=== PATIENT | female | born 1970 | race Caucasian/White ===

== ENCOUNTER 2017-08-19 21:20 | Emergency (ER) | payer MEDICAID ==
[~2017-08-19 21:20] MED LIST: ALBU6.7H INH
[2017-08-19 21:24] VITALS: BP 211/114; PULSE 74; RESP 15; TEMP 98.7; O2SAT 99
== END 2017-08-19 23:11 | disposition left against medical advice (07) ==
LOC: NED 21:20
DX: R68.89 Other general symptoms and signs (principal)
CPT/HCPCS: 99281

== ENCOUNTER 2017-09-12 18:09 | Emergency (ER) | payer MEDICAID ==
[~2017-09-12] VITALS: Ht 170.2 cm; Wt 66.0 kg
[2017-09-12 18:17] VITALS: BP 180/87; PULSE 92; RESP 16; TEMP 99; O2SAT 99
[2017-09-12] MEDS ORDERED: CLON.5 PO (18:32)
[2017-09-12] MEDS ORDERED: PERC10TA27 PO (18:32)
[2017-09-12] MEDS ORDERED: CYCL5TAB PO (18:32)
[2017-09-12] MEDS ORDERED: ATEN50TA PO (18:32)
[2017-09-12] MEDS ORDERED: FENT50DI T-DERMAL (18:32)
[2017-09-12] MEDS ORDERED: SODIUM CHLOR 0.9% 1000 ML INJ 1,000 ML IV SCH (19:40)
[2017-09-12 19:45] VITALS: BP 152/89; PULSE 76; RESP 16; O2SAT 98
[2017-09-12] MEDS ORDERED: SODIUM CHLORIDE 0.9% FLUSH 10 ML FLUSH IV FLUSH PRN (19:45)
[2017-09-12] MEDS ORDERED: ONDANSETRON HCL 4 MG/2 ML VIAL IVP ONE (19:45)
[2017-09-12 19:57] VITALS: O2SAT 96
[2017-09-12 20:02] VITALS: TEMP 98.1
[2017-09-12 20:03] LABS: AUTOMATED NEUTROPHIL # 7.6 TH/MM3 (1.8-7.7); BASOPHIL % 0.4 % (0.0-2.0); EOSINOPHIL # 0.2 TH/MM3 (0-0.4); EOSINOPHIL % 1.4 % (0.0-4.0); HEMATOCRIT 45.3 % (35.0-46.0); HEMO FLAGS DIFF FINAL; LYMPH % 30.3 % (9.0-44.0); LYMPHOCYTE # 3.7 TH/MM3 (1.0-4.8); MEAN CORPUSCULAR HEMOGLOBIN 31.1 PG (27.0-34.0); MEAN CORPUSCULAR HGB CONC 33.8 % (32.0-36.0); MONO % 6.9 % (0.0-8.0); PLATELET COUNT 330 TH/MM3 (150-450); RED BLOOD COUNT 4.93 MIL/MM3 (4.00-5.30); RED CELL DISTRIBUTION WIDTH 13.7 % (11.6-17.2); WHITE BLOOD COUNT 12.4 TH/MM3 (4.0-11.0)
[2017-09-12 20:05] LABS: BLOOD, URINE NEG (NEG); GLUCOSE,URINE NEG (NEG); KETONE, URINE TRACE mg/dL (NEG); NITRITE,URINE NEG (NEG); PH, URINE 5.5 (5.0-8.5)
[2017-09-12 20:11] LABS: CHLORIDE 101 MEQ/L (98-107); POTASSIUM 3.9 MEQ/L (3.5-5.1); SODIUM (NA) 137 MEQ/L (136-145)
[2017-09-12 20:15] LABS: ANION GAP 8 MEQ/L (5-15); BICARBONATE 27.9 MEQ/L (21.0-32.0); BLOOD UREA NITROGEN 17 MG/DL (7-18)
[2017-09-12 20:17] VITALS: BP 173/89; PULSE 74; RESP 16; O2SAT 99
[2017-09-12 20:17] LABS: MUCUS URINE MOD /lpf (OCC); URINE COLOR AMBER (YELLW/STRAW)
[2017-09-12 20:18] LABS: ALT (GPT) 24 U/L (10-53); AST (GOT) 9 U/L (15-37); GLOMERULAR FILTRATION RATE 65 ML/MIN (>89)
[2017-09-12 20:18] LABS: SQUAMOUS EPITHELIAL CELL URINE 0-5 /hpf (0-5)
[2017-09-12 20:19] LABS: TOTAL BILIRUBIN ADULT 0.4 MG/DL (0.2-1.0)
[2017-09-12 20:19] LABS: BACTERIA, URINE OCC /hpf; COMMENT (UR) CULT NOT INDICATED; CULTURE IF INDICATED CULT NOT INDICATED; RBC, URINE 0-3 /hpf (0-3); WBC, URINE 0-2 /hpf (0-5)
[2017-09-12 20:21] LABS: ALKALINE PHOSPHATASE 54 U/L (45-117)
[2017-09-12] MEDS ORDERED: IOHEXOL 350 MG/ML 10 ML VIAL (for RAD DIAG) IVCONTRAST ONE (21:24)
--- NOTE | 2017-09-12 21:31 | RADRPT ---
EXAM DATE/TIME: 09/12/2017 20:58 [place] COMPARISON: No previous studies available for comparison. INDICATIONS : Right flank and back pain. IV CONTRAST: 100 cc Omnipaque 350 (iohexol) IV ORAL CONTRAST: No oral contrast ingested. RADIATION DOSE: 8.62 CTDIvol (mGy) MEDICAL HISTORY : Hypertension. Diverticulosis. SURGICAL HISTORY : Hysterectomy. laminectomy ENCOUNTER: Initial ACUITY: 2 days PAIN SCALE: 8/10 LOCATION: Right flank back TECHNIQUE: Volumetric scanning of the abdomen and pelvis was performed. Using automated exposure control and ad justment of the mA and/or kV according to patient size, radiation dose was kept as low as reasonably achievable to obtain optimal diagnostic quality images. DICOM format image data is available electro nically for review and comparison. FINDINGS: CT Abdomen: The liver, spleen, pancreas, kidneys, adrenals are unremarkable. There is no evidence for any appreciable pathological adenopathy, free fluid, or bowel obstruction. CT pelvis: There is no evidence for mass, abscess formation, or any significant adenopathy within the pelvis. There are scattered diverticuli mainly in the sigmoid colon without definite signs of divert iculitis. There is an approximate 2.7 cm cyst in the right ovary and the uterus is absent surgically. CONCLUSION: Essentially unremarkable study except for right ovarian cyst and scattered colonic. Lj Gay MD on September 12, 2017 at 21:25 Board Certified Radiologist. This report was verified electronically.
[2017-09-12] MEDS ORDERED: ZOFR4TAB3 SL (21:46)
--- NOTE | 2017-09-12 21:47 | PD ---
HPI Chief Complaint: GI Complaint Time Seen by Provider: 19:40 Travel History International Travel<30 days: No Contact w/Intl Traveler<30days: No Traveled to known affect area: No History of Present Illness HPI 47-year-old female presents to the emergency department for complaint of myalgias arthralgias Everone and lower abdominal pain since yesterday morning. Patient has had nausea without vomiting. Patient has had a few loose stools but denies mucoid or bloody diarrhea. Patient states that she has had some back pain as well. Patient states she has chronic back pain for which she is prescribed a pain patch and Percocet every 6 hours. Patient states because she takes Percocet every 6 hours with acetaminophen she thinks she may have missed a fever but has noted her temperature to be 99.6F at home. Patient states that she attempted to see her physician today and called the office but no one answered or call her back therefore follow decided to come to the emergency room. Patient states she just does not feel well overall. Patient states that she was on antibiotic that she completed approximately one week ago. Patient had been on azithromycin for upper respiratory infection. Patient denies any respiratory illness symptoms at this time no headache no sinus pressure drainage no sore throat no earache no cough no congestion no shortness of breath no wheezing or chest pain. Patient states she has been taking her blood pressure medication as prescribed. Patient is concerned because she has had previous diverticulitis and urinary tract infections. Patient denies any dysuria frequency urgency or hematuria. Patient is status post hysterectomy and has history of small ovarian cysts. Patient has had no vaginal discharge or vaginal bleeding. Patient rates her pain 8/10 in intensity. Patient is unable to identify exacerbating or alleviating factors. Patient does not report anorexia. [facility] Past Medical History Narrative Medical Asthma anxiety diverticulosis spina bifida occulta chronic pain syndrome chronic back pain hysterectomy ovarian cyst hypertension migraines; tobacco use; : Nursing notes reviewed Asthma: Yes Anxiety: Yes Diminished Hearing: No Hypertension: Yes Neurologic: Yes (SPINA BIFIDA) Immunizations Current: No Migraines: Yes ?: Not Past Surgical History Hysterectomy: Yes Social History Alcohol Use: No Tobacco Use: Yes (1/2PPD) Substance Use: No Allergies-Medications (Allergen,Severity, Reaction): Coded Allergies: aspirin (Unverified Allergy, Severe, Anaphylaxis, 09/12/17) codeine (Unverified Allergy, Severe, Anaphylaxis, 09/12/17) ibuprofen (Unverified Allergy, Severe, Anaphylaxis, 09/12/17) Reported Meds & Prescriptions Reported Meds & Active Scripts Active Zofran Odt (Ondansetron Odt) 4 Mg Tab 4 Mg SL Q6HR PRN Reported Flexeril (Cyclobenzaprine HCl) 5 Mg Tab 5 Mg PO TID Percocet (Oxycodone-Acetaminophen) 10-325 mg Tab 1 Tab PO Q6H PRN Fentanyl Patch 72 HR (Fentanyl) 50 Mcg/Hr Patch 50 Mcg T-DERMAL Q72H Remove old patch when new one placed. Klonopin (Clonazepam) 0.5 Mg Tab 0.5 Mg PO DAILY Atenolol 50 Mg Tab 50 Mg PO HS Review of Systems Except as stated in HPI: all other systems reviewed are Neg General / Constitutional: Positive: Fever, No: Chills (subjective) HENT: No: Headaches, Lightheadedness, Sore Throat, Rhinorrhea, Congestion Cardiovascular: No: Chest Pain or Discomfort Respiratory: No: Cough, Shortness of Breath Gastrointestinal: Positive: Nausea, Abdominal Pain, No: Diarrhea, Hematemesis, Hematochezia, Loss of Appetite Genitourinary: Positive: Flank Pain, No: Urgency, Frequency, Dysuria, Hematuria , Pelvic Pain, Discharge, Vaginal Bleeding Musculoskeletal: Positive: Myalgias, Arthralgias, Pain (chronic low back pain) Skin: No Rash Neurologic: No: Weakness Endocrine: No: Heat Intolerance Hematologic/Lymphatic: No: Easy Bruising Physical Exam Narrative GENERAL: Well-developed well-nourished female in no acute distress no respiratory distress SKIN: Warm and dry. HEAD: Normocephalic. EYES: No scleral icterus. No injection or drainage. NECK: Supple, trachea midline. No JVD or lymphadenopathy. CARDIOVASCULAR: Regular rate and rhythm without murmurs, gallops, or rubs. RESPIRATORY: Breath sounds equal bilaterally. No accessory muscle use. GASTROINTESTINAL: Abdomen soft, mild bilateral lower quadrant tenderness without guarding or rebound, nondistended. MUSCULOSKELETAL: No cyanosis, or edema. BACK: Nontender without obvious deformity. No CVA tenderness. Data Data Last Documented VS Vital Signs Date Time Temp Pulse Resp B/P (MAP) Pulse Ox O2 Delivery O2 Flow Rate FiO2 09/12/17 20:17 74 16 173/89 (117) 99 Room Air 09/12/17 20:02 98.1 Orders Orders Complete Blood Count With Diff (09/12/17 19:40) Comprehensive Metabolic Panel (09/12/17 19:40) Lipase (09/12/17 19:40) Lactic Acid (09/12/17 19:40) Urinalysis - C+S If Indicated (09/12/17 19:40) Ct Abd/Pel W Iv Contrast(Rout) (09/12/17 19:40) Iv Access Insert/Monitor (09/12/17 19:40) Ecg Monitoring (09/12/17 19:40) Oximetry (09/12/17 19:40) Ondansetron Inj (Zofran Inj) (09/12/17 19:45) Sodium Chlor 0.9% 1000 Ml Inj (Ns 1000 M (09/12/17 19:40) Sodium Chloride 0.9% Flush (Ns Flush) (09/12/17 19:45) Blood Culture (09/12/17 19:40) Iohexol 350 Inj (Omnipaque 350 Inj) (09/12/17 21:24) Ed Discharge Order (09/12/17 21:45) Labs Laboratory Tests Test 09/12/17 18:38 09/12/17 18:49 09/12/17 19:00 Urine Color NENA Urine Turbidity SLIGHT Urine pH 5.5 Urine Specific Eldred GREATER THAN 1.035 Urine Protein TRACE mg/dL Urine Glucose (UA) NEG mg/dL Urine Ketones TRACE mg/dL Urine Occult Blood NEG Urine Nitrite NEG Urine Bilirubin NEG Urine Leukocyte Esterase NEG Urine RBC 0-3 /hpf Urine WBC 0-2 /hpf Urine Squamous Epithelial Cells 0-5 /hpf Urine Amorphous Sediment MOD Urine Bacteria OCC /hpf Urine Mucus MOD /lpf Microscopic Urinalysis Comment CULT NOT INDICATED White Blood Count 12.4 TH/MM3 Red Blood Count 4.93 MIL/MM3 Hemoglobin 15.3 GM/DL Hematocrit 45.3 % Mean Corpuscular Volume 92.0 FL Mean Corpuscular Hemoglobin 31.1 PG Mean Corpuscular Hemoglobin Concent 33.8 % Red Cell Distribution Width 13.7 % Platelet Count 330 TH/MM3 Mean Platelet Volume 7.7 FL Neutrophils (%) (Auto) 61.0 % Lymphocytes (%) (Auto) 30.3 % Monocytes (%) (Auto) 6.9 % Eosinophils (%) (Auto) 1.4 % Basophils (%) (Auto) 0.4 % Neutrophils # (Auto) 7.6 TH/MM3 Lymphocytes # (Auto) 3.7 TH/MM3 Monocytes # (Auto) 0.9 TH/MM3 Eosinophils # (Auto) 0.2 TH/MM3 Basophils # (Auto) 0.0 TH/MM3 CBC Comment DIFF FINAL Differential Comment Blood Urea Nitrogen 17 MG/DL Creatinine 0.93 MG/DL Random Glucose 99 MG/DL Total Protein 8.0 GM/DL Albumin 3.8 GM/DL Calcium Level 9.2 MG/DL Alkaline Phosphatase 54 U/L Aspartate Amino Transf (AST/SGOT) 9 U/L Alanine Aminotransferase (ALT/SGPT) 24 U/L Total Bilirubin 0.4 MG/DL Sodium Level 137 MEQ/L Potassium Level 3.9 MEQ/L Chloride Level 101 MEQ/L Carbon Dioxide Level 27.9 MEQ/L Anion Gap 8 MEQ/L Estimat Glomerular Filtration Rate 65 ML/MIN Lipase 165 U/L Lactic Acid Level 1.0 mmol/L MDM Medical Decision Making Medical Screen Exam Complete: Yes Emergency Medical Condition: Yes Medical Record Reviewed: Yes Interpretation(s) Last Impressions Abdomen/Pelvis CT 09/12/171939 Signed Impressions: Service Date/Time: Tuesday, September 12, 2017 20:58 - CONCLUSION: Essentially unremarkable study except for right ovarian cyst and scattered colonic. Diverticuli. Nay Gay MD CBC & BMP Diagram 09/12/17 18:49 Total Protein 8.0, Albumin 3.8, Calcium Level 9.2, Alkaline Phosphatase 54, Aspartate Amino Transf (AST/SGOT) 9 L, Alanine Aminotransferase (ALT/SGPT) 24, Total Bilirubin 0.4 Vital Signs Date Time Temp Pulse Resp B/P (MAP) Pulse Ox O2 Delivery O2 Flow Rate FiO2 09/12/17 20:17 74 16 173/89 (117) 99 Room Air 09/12/17 20:02 98.1 09/12/17 19:57 96 09/12/17 19:45 76 16 152/89 (110) 98 Room Air 09/12/17 18:17 99.0 92 16 180/87 (118) 99 Differential Diagnosis Abdominal pain, diverticulitis, colitis, UTI, pyelonephritis, atypical appendicitis ruptured ovarian cyst: Also consider atypical biliary colic and less likely ovarian torsion Narrative Course Patient placed on cardiac cath technologist IV access obtained specimens collected and sent for resulting patient given bolus of normal saline 1 L as well as Zofran 4 mg IV Patient waiting on lab results and resting comfortably and CT abdomen and pelvis pending CBC is automated differential mild elevation of total white cell count 12,500 with normal range hemoglobin hematocrit platelet count and automated differential; the metabolic panel grossly within normal range and lactic acid is elevated at 1.0 Urinalysis produced and identified to have elevated specific 55 small ketones otherwise unremarkable EKG Patient taking oral hydration with Gatorade CT abdomen and pelvis resulted and identified to have no acute intra-abdominal or pelvic process a 2.7 cm ovarian cyst is noted on the right ovary. Patient informed of imaging results and states that she has had a cyst on the right ovary for some time and sounds unchanged. Patient taking oral hydration well and feels much improved after IV fluid bolus and states that she has urinated twice and that her urine is now appearing to look clear instead of concentrated. Patient feels well is desirous of being discharged home in stable for outpatient management at this time with encouragement to follow up with her primary care provider continue to monitor temperature for fever and given prescription for Zofran 4 mg. Patient's questions have been answered to her satisfaction Diagnosis Primary Impression: Abdominal pain Qualified Codes: R10.30 - Lower abdominal pain, unspecified Additional Impression: Dehydration Referrals: Primary Care Physician call for appointment Patient Instructions: General Instructions Additional Instructions: Increase fluid hydration Follow clear liquid diet for next 12-24 hours advance as tolerated to bland/ Loli diet then regular diet Follow-up with your primary care provider Monitor temperature every 4 hours with thermometer take acetaminophen as needed for fever 100.4F or greater Return to the emergency department for increased pain fever vomiting or any concerns No work times one day Med/Other Pt SpecificInfo: Prescription(s) given Scripts Ondansetron Odt (Zofran Odt) 4 Mg Tab 4 MG SL Q6HR Y for Nausea/Vomiting, #10 TAB 0 Refills Prov: Padmini Weiss MD 09/12/17 Disposition: 01 DISCHARGE HOME Condition: Stable Padmini Weiss MD Sep 12, 2017 21:47
== END 2017-09-12 22:00 | disposition home or self-care (01) ==
LOC: PHED 18:09
DX: R10.30 Lower abdominal pain, unspecified (principal); J45.909 Unspecified asthma, uncomplicated; F41.9 Anxiety disorder, unspecified; I10 Essential (primary) hypertension; F17.200 Nicotine dependence, unspecified, uncomplicated; Z79.899 Other long term (current) drug therapy; E86.0 Dehydration
CPT/HCPCS: 74177; 80053; 81001; 83605; 83690; 85025; 87040; 96361; 96374; 99285; J2405; J7030; Q9967

== ENCOUNTER → 2017-12-05 | Outpatient (CLI) | payer MEDICAID ==
[~2017-12-05] MED LIST changes: -ALBU6.7H INH; +ATEN50TA PO; +CLON.5 PO; +CYCL5TAB PO; +FENT50DI T-DERMAL; +PERC10TA27 PO; +ZOFR4TAB3 SL
--- NOTE | 2017-12-05 16:11 | EKG ---
Date Performed: 12/05/2017 Time Performed: 13:11:47 PTAGE: 47 years EKG: Sinus rhythm NORMAL ECG PREVIOUS TRACING : 03/05/2012 16.34 Compared to prior tracing no significant change DOCTOR: Ben Lindquist Interpretating Date/Time 12/05/2017 16:09:44
== END ==
LOC: HCAV 12:50
PROVIDERS: ATTEND Psychiatry & Neurology Child & Adolescent Psychiatry
DX: F43.12 Post-traumatic stress disorder, chronic (principal); F90.0 Attention-deficit hyperactivity disorder, predominantly inattentive type; F39 Unspecified mood [affective] disorder
CPT/HCPCS: 93005

== ENCOUNTER 2018-07-12 01:00 | Inpatient (IN) ==
[2018-07-12] MEDS ORDERED: Sod Chloride 0.9% Inj 1,000 ML IV.CONT SCH (01:30)
[2018-07-12 02:09] LABS: Baso # (Auto) 0.1 th/mm3 (0.0-0.2); Baso % (Auto) 0.7 % (0.0-2.0); Eos # (Auto) 0.2 th/mm3 (0.0-0.4); Eos % (Auto) 2.5 % (0.0-4.0); Hematocrit 38.3 % (35.0-46.0); Hemoglobin 13.2 gm/dL (11.6-15.3); Lymph # (Auto) 4.1 th/mm3 (1.0-4.8); Lymph % (Auto) 46.5 % (9.0-44.0); Mean Corpuscular HGB Conc 34.6 % (32.0-36.0); Mean Corpuscular Hemoglobin 32.2 pg (27.0-34.0); Mean Platelet Volume 8.1 fL (7.0-11.0); Mono # (Auto) 0.7 th/mm3 (0.0-0.9); Mono % (Auto) 7.4 % (0.0-8.0); Neut # (Auto) 3.8 th/mm3 (1.8-7.7); Neut % (Auto) 42.9 % (16.0-70.0); Platelet Count 241 th/mm3 (150-450); Red Blood Count 4.12 mil/mm3 (4.00-5.30); Red Cell Distribution Width 12.7 % (11.6-17.2); White Blood Count 8.9 th/mm3 (4.0-11.0)
--- NOTE | 2018-07-12 02:11 | XR ---
EXAM DATE: 07/12/2018 1:49 AM EDT AGE/SEX: 48 years / Female INDICATIONS: Short of breath. CLINICAL DATA: This is the patient's initial encounter. Patient reports that signs and symptoms have been present for 1 day and indicates a pain score of 2/10. MEDICAL/SURGICAL HISTORY: None. None. COMPARISON: No prior exams available for comparison. FINDINGS: A single AP view of the chest demonstrates the lungs to be symmetrically aerated without evidence of mass, infiltrate or effusion. The cardiomediastinal contours are unremarkable. Osseous structures a re intact. CONCLUSION: No acute cardiopulmonary process. Electronically signed by: Corey Herman MD 07/12/2018 2:10 AM EDT
[2018-07-12 02:21] LABS: Activated Partial Thrombo Time 27.1 sec (24.3-30.1); Prothrombin Time 10.3 sec (9.8-11.6)
[2018-07-12] MEDS ORDERED: Sod Chloride 0.9% Inj 1,000 ML IV.SIG ONE (02:22)
[2018-07-12 02:24] LABS: Anion Gap 7 meq/L (5-15); Blood Urea Nitrogen 16 mg/dL (7-18); Calcium 8.5 mg/dL (8.5-10.1); Carbon Dioxide 23.2 meq/L (21.0-32.0); Chloride 114 meq/L (98-107); Glomerular Filtration Rate 71 mL/min (>89); Glucose,Random 89 mg/dL (74-106); Potassium 3.3 meq/L (3.5-5.1); Sodium 144 meq/L (136-145)
--- NOTE | 2018-07-12 02:24 | ED ---
HPI General Chief complaint: Neuro Symptoms/Deficit Stated complaint: Seizure/Evac Time Seen by Provider: 07/12/18 01:08 Source: patient Mode of arrival: ambulatory Limitations: no limitations History of Present Illness HPI narrative: Ivan is a 48-year-old female presenting with multiple complaints. She stated that she has had TIAs in the past. She also states that she was seen by her neurologist yesterday and told her that she may be having nocturnal seizures with TIAs and she was scheduled to have an outpatient CT angios of the head and neck. She stated that she had an MRI that showed that she had several previous strokes. Today she was sleeping and woke up very confused and having tingling and numbness on her left upper extremity and difficulty speaking. She also stated that she was having palpitations and difficulty breathing. Her symptoms have resolved. Onset (ago): unknown Location: left and upper extremity Radiation: non-radiation Associated symptoms: confusion and shortness of breath Related Data Home Medications Medication Instructions Recorded Confirmed clopidogrel [Plavix] 75 mg PO EVERY OTHER DAY 07/12/18 07/12/18 fenofibrate nanocrystallized 48 mg PO DAILY 07/12/18 07/12/18 fentanyl 1 patch TRANSDERMAL Q72H 07/12/18 07/12/18 ondansetron 4 mg PO BID PRN 07/12/18 07/12/18 oxycodone-acetaminophen [Percocet] 1 tab PO Q6H PRN 07/12/18 07/12/18 sumatriptan succinate 50 mg PO Q2-4H PRN 07/12/18 07/12/18 topiramate 200 mg PO HS 07/12/18 07/12/18 verapamil 120 mg PO HS 07/12/18 07/12/18 Allergies Allergy/AdvReac Type Severity Reaction Status Date / Time aspirin Allergy Severe Anaphylaxis Verified 07/12/18 15:00 codeine Allergy Severe Anaphylaxis Verified 07/12/18 15:00 ibuprofen Allergy Severe Anaphylaxis Verified 07/12/18 15:00 Review of Systems ROS: all other systems reviewed are negative Constitutional Reports fatigue, Denies fever(s), Denies headache(s), Reports malaise and Denies night sweats Eyes Reports system reviewed and no additional complaints, except as docu, Denies diplopia, Denies loss of vision and Denies photophobia ENT Reports system reviewed and no additional complaints, except as docu Cardiovascular Reports chest pain, Reports irregular heart rhythm and Reports palpitations Gastrointestinal Reports as per [facility] Genitourinary Reports system reviewed and no additional complaints, except as [facility] Musculoskeletal Reports system reviewed and no additional complaints, except as [facility] Neurologic Denies abnormal movements, Reports abnormal speech, Reports confusion, Denies vertigo, Denies syncope, Denies headache(s), Denies focal weakness, Denies convulsions, Denies paresthesias, Denies tremor(s) and Denies weakness [facility] Medical History Medical History Diabetes (Acute) Hx of hysterectomy (Acute) Hypertension (Acute) TIA (transient ischemic attack) (Acute) Surgical History Surgical History Hx of laminectomy (Acute) Family History Family History Father CVA (cerebral vascular accident) Mother CVA (cerebral vascular accident) Social History Social History Substance History: No History of Abuse Second Hand Smoke Exposure: Yes Smoking Status: Current every day smoker Tobacco Type: Cigarettes How Often Do You Have a Drink Containing Alcohol: Monthly or less Recent Travel in [facility] within the Last 8 Weeks: No Recent Out of Country Travel within the Last 8 Weeks: No Immunization History Tetanus Immunization: Unsure Hx Influenza Vaccine This Season: No Exam Narrative Exam Narrative: GENERAL: Alert and oriented in no distress SKIN: Focused skin assessment warm/dry. HEAD: Atraumatic. Normocephalic. EYES: Pupils equal and round. No scleral icterus. No injection or drainage. ENT: No nasal bleeding or discharge. Mucous membranes pink and moist. NECK: Trachea midline. No JVD. CARDIOVASCULAR: Regular rate and rhythm. No murmur appreciated. RESPIRATORY: No accessory muscle use. Clear to auscultation. Breath sounds equal bilaterally. GASTROINTESTINAL: Abdomen soft, non-tender, nondistended. Hepatic and splenic margins not palpable. MUSCULOSKELETAL: No obvious deformities. No clubbing. No cyanosis. No edema. NEUROLOGICAL: Awake and alert. No obvious cranial nerve deficits. Motor grossly within normal limits. Normal speech. No focal neurologic deficits. Bilateral patellar reflex absent. Bilateral brachio/radial reflex 1+, no sensory deficit. PSYCHIATRIC: Appropriate mood and affect; insight and judgment normal. Psych Mental Status: mental status grossly normal Speech and Movement: speech and movement normal and restless Affect: animated Attitude: cooperative Thought Process: flight of ideas Judgment: judgment good Course Reevaluation(s) Reevaluation #1: Patient called in distress in the room stating that she is feeling exactly the same way that she was feeling at home. It appears on monitor that she is having a sinus tachycardia. We did vasovagal maneuvers with immediate drop of heart rate from the 140s to the 120s we will give a liter of fluid and reassess. Time: 02:23 Initial Documented Vital Signs Temperature 98.1 F 07/12/18 01:05 Pulse Rate 84 07/12/18 01:05 Respiratory Rate 18 07/12/18 01:05 Blood Pressure 161/88 H 07/12/18 01:05 Pulse Oximetry 100 07/12/18 01:05 Last Documented Vital Signs Temperature 98.2 F 07/14/18 03:49 Pulse Rate 64 07/14/18 05:10 Respiratory Rate 16 07/14/18 03:49 Blood Pressure 108/75 07/14/18 03:49 Pulse Oximetry 99 07/14/18 03:49 Medical Decision Making [facility] Narrative Medical Screen Exam Complete: Yes Emergency Medical Condition: Yes Lab Data Result diagrams: 07/13/18 05:53 07/13/18 05:53 Lab Results 07/12/18 07/12/18 07/12/18 Range/Units 01:50 01:50 01:50 WBC 8.9 (4.0-11.0) th/mm3 RBC 4.12 (4.00-5.30) mil/mm3 Hgb 13.2 (11.6-15.3) gm/dL Hct 38.3 (35.0-46.0) % MCV 93.0 (80.0-100.0) fL MCH 32.2 (27.0-34.0) pg MCHC 34.6 (32.0-36.0) % RDW 12.7 (11.6-17.2) % Plt Count 241 (150-450) th/mm3 MPV 8.1 (7.0-11.0) fL Neut % (Auto) 42.9 (16.0-70.0) % Lymph % (Auto) 46.5 H (9.0-44.0) % Sandoval % (Auto) 7.4 (0.0-8.0) % Eos % (Auto) 2.5 (0.0-4.0) % Baso % (Auto) 0.7 (0.0-2.0) % Neut # (Auto) 3.8 (1.8-7.7) th/mm3 Lymph # (Auto) 4.1 (1.0-4.8) th/mm3 [place]oval # (Auto) 0.7 (0.0-0.9) th/mm3 Eos # (Auto) 0.2 (0.0-0.4) th/mm3 Baso # (Auto) 0.1 (0.0-0.2) th/mm3 WBC Differential . Differential Comment Auto diff final ESR (0-20) mm/hr PT 10.3 (9.8-11.6) sec INR 1.0 Ratio APTT 27.1 (24.3-30.1) sec Sodium 144 (136-145) meq/L Potassium 3.3 L (3.5-5.1) meq/L Chloride 114 H (98-107) meq/L Carbon Dioxide 23.2 (21.0-32.0) meq/L Anion Gap 7 (5-15) meq/L BUN 16 (7-18) mg/dL Creatinine 0.86 (0.50-1.00) mg/dL Estimated GFR 71 L (>89) mL/min POC Glucose (68-110) mg/dl Random Glucose 89 (74-106) mg/dL Hemoglobin A1c (4.3-6.0) % Calcium 8.5 (8.5-10.1) mg/dL Total Creatine Kinase 60 (26-192) U/L Troponin I Less than 0.02 L (0.02-0.05) ng/mL Triglycerides (42-150) mg/dL Cholesterol (120-200) mg/dL LDL Cholesterol, Calc (0-99) mg/dL HDL Cholesterol (40.0-60.0) mg/dL Cholesterol/HDL Ratio Ratio Vitamin B12 (193-986) pg/mL TSH (0.358-3.740) uIU/mL Urine Color (Yellw/Straw) Urine Clarity (Clear) Urine pH (5.0-8.5) Ur Specific Axton (1.002-1.035) Urine Protein (Neg-Trace) mg/dL Urine Glucose (UA) (Negative) mg/dL Urine Ketones (Negative) mg/dL Urine Occult Blood (Negative) Urine Nitrate (Negative) Urine Bilirubin (Negative) Urine Urobilinogen (Less than 2) mg/dL Ur Leukocyte Esterase (Negative) Ur Squamous Epith Cells (0-5) /hpf Amorphous Sediment (None) /hpf Urine Bacteria (None) /hpf Micro UA Comment Urine Culture Comments GREGORY Screen (Neg) RPR (Nonreactive) Blood Type Blood Type Recheck Antibody Screen 07/12/18 07/12/18 07/12/18 Range/Units 01:50 02:00 18:45 WBC (4.0-11.0) th/mm3 RBC (4.00-5.30) mil/mm3 Hgb (11.6-15.3) gm/dL Hct (35.0-46.0) % MCV (80.0-100.0) fL MCH (27.0-34.0) pg MCHC (32.0-36.0) % RDW (11.6-17.2) % Plt Count (150-450) th/mm3 MPV (7.0-11.0) fL Neut % (Auto) (16.0-70.0) % Lymph % (Auto) (9.0-44.0) % Sandoval % (Auto) (0.0-8.0) % Eos % (Auto) (0.0-4.0) % Baso % (Auto) (0.0-2.0) % Neut # (Auto) (1.8-7.7) th/mm3 Lymph # (Auto) (1.0-4.8) th/mm3 Sandoval # (Auto) (0.0-0.9) th/mm3 Eos # (Auto) (0.0-0.4) th/mm3 Baso # (Auto) (0.0-0.2) th/mm3 WBC Differential Differential Comment ESR (0-20) mm/hr PT (9.8-11.6) sec INR Ratio APTT (24.3-30.1) sec Sodium (136-145) meq/L Potassium (3.5-5.1) meq/L Chloride (98-107) meq/L Carbon Dioxide (21.0-32.0) meq/L Anion Gap (5-15) meq/L BUN (7-18) mg/dL Creatinine (0.50-1.00) mg/dL Estimated GFR (>89) mL/min POC Glucose 86 (68-110) mg/dl Random Glucose (74-106) mg/dL Hemoglobin A1c (4.3-6.0) % Calcium (8.5-10.1) mg/dL Total Creatine Kinase (26-192) U/L Troponin I (0.02-0.05) ng/mL Triglycerides (42-150) mg/dL Cholesterol (120-200) mg/dL LDL Cholesterol, Calc (0-99) mg/dL HDL Cholesterol (40.0-60.0) mg/dL Cholesterol/HDL Ratio Ratio Vitamin B12 (193-986) pg/mL TSH (0.358-3.740) uIU/mL Urine Color Yellow (Yellw/Straw) Urine Clarity Cloudy H (Clear) Urine pH 8.0 (5.0-8.5) Ur Specific [place] 1.015 (1.002-1.035) Urine Protein Negative (Neg-Trace) mg/dL Urine Glucose (UA) Negative (Negative) mg/dL Urine Ketones Negative (Negative) mg/dL Urine Occult Blood Negative (Negative) Urine Nitrate Negative (Negative) Urine Bilirubin Negative (Negative) Urine Urobilinogen 4 or greater (Less than 2) mg/dL Ur Leukocyte Esterase Negative (Negative) Ur Squamous Epith Cells 1 (0-5) /hpf Amorphous Sediment Rare H (None) /hpf Urine Bacteria Rare H (None) /hpf Micro UA Comment Culture not ind Urine Culture Comments Culture not ind GREGORY Screen (Neg) RPR (Nonreactive) Blood Type A Positive Blood Type Recheck Required Antibody Screen Negative 07/12/18 07/12/18 07/12/18 Range/Units 20:00 20:50 20:50 WBC (4.0-11.0) th/mm3 RBC (4.00-5.30) mil/mm3 Hgb (11.6-15.3) gm/dL Hct (35.0-46.0) % MCV (80.0-100.0) fL MCH (27.0-34.0) pg MCHC (32.0-36.0) % RDW (11.6-17.2) % Plt Count (150-450) th/mm3 MPV (7.0-11.0) fL Neut % (Auto) (16.0-70.0) % Lymph % (Auto) (9.0-44.0) % Sandoval % (Auto) (0.0-8.0) % Eos % (Auto) (0.0-4.0) % Baso % (Auto) (0.0-2.0) % Neut # (Auto) (1.8-7.7) th/mm3 Lymph # (Auto) (1.0-4.8) th/mm3 Sandoval # (Auto) (0.0-0.9) th/mm3 Eos # (Auto) (0.0-0.4) th/mm3 Baso # (Auto) (0.0-0.2) th/mm3 WBC Differential Differential Comment ESR 15 (0-20) mm/hr PT (9.8-11.6) sec INR Ratio APTT (24.3-30.1) sec Sodium (136-145) meq/L Potassium (3.5-5.1) meq/L Chloride (98-107) meq/L Carbon Dioxide (21.0-32.0) meq/L Anion Gap (5-15) meq/L BUN (7-18) mg/dL Creatinine (0.50-1.00) mg/dL Estimated GFR (>89) mL/min POC Glucose (68-110) mg/dl Random Glucose (74-106) mg/dL Hemoglobin A1c (4.3-6.0) % Calcium (8.5-10.1) mg/dL Total Creatine Kinase (26-192) U/L Troponin I (0.02-0.05) ng/mL Triglycerides 197 H (42-150) mg/dL Cholesterol 205 H (120-200) mg/dL LDL Cholesterol, Calc 129 H (0-99) mg/dL HDL Cholesterol 37.1 L (40.0-60.0) mg/dL Cholesterol/HDL Ratio 5.52 Ratio Vitamin B12 280 (193-986) pg/mL TSH 0.347 L (0.358-3.740) uIU/mL Urine Color (Yellw/Straw) Urine Clarity (Clear) Urine pH (5.0-8.5) Ur Specific [place] (1.002-1.035) Urine Protein (Neg-Trace) mg/dL Urine Glucose (UA) (Negative) mg/dL Urine Ketones (Negative) mg/dL Urine Occult Blood (Negative) Urine Nitrate (Negative) Urine Bilirubin (Negative) Urine Urobilinogen (Less than 2) mg/dL Ur Leukocyte Esterase (Negative) Ur Squamous Epith Cells (0-5) /hpf Amorphous Sediment (None) /hpf Urine Bacteria (None) /hpf Micro UA Comment Urine Culture Comments GREGORY Screen Neg (Neg) RPR Nonreactive (Nonreactive) Blood Type Blood Type Recheck Antibody Screen 07/12/18 07/13/18 07/13/18 Range/Units 21:33 05:53 05:53 WBC 8.2 (4.0-11.0) th/mm3 RBC 4.37 (4.00-5.30) mil/mm3 Hgb 13.9 (11.6-15.3) gm/dL Hct 40.4 (35.0-46.0) % MCV 92.4 (80.0-100.0) fL MCH 31.8 (27.0-34.0) pg MCHC 34.4 (32.0-36.0) % RDW 12.5 (11.6-17.2) % Plt Count 256 (150-450) th/mm3 MPV 8.0 (7.0-11.0) fL Neut % (Auto) 51.1 (16.0-70.0) % Lymph % (Auto) 40.2 (9.0-44.0) % Sandoval % (Auto) 6.4 (0.0-8.0) % Eos % (Auto) 1.6 (0.0-4.0) % Baso % (Auto) 0.7 (0.0-2.0) % Neut # (Auto) 4.2 (1.8-7.7) th/mm3 Lymph # (Auto) 3.3 (1.0-4.8) th/mm3 Sandoval # (Auto) 0.5 (0.0-0.9) th/mm3 Eos # (Auto) 0.1 (0.0-0.4) th/mm3 Baso # (Auto) 0.1 (0.0-0.2) th/mm3 WBC Differential . Differential Comment Auto diff final ESR (0-20) mm/hr PT (9.8-11.6) sec INR Ratio APTT (24.3-30.1) sec Sodium 141 (136-145) meq/L Potassium 3.5 (3.5-5.1) meq/L Chloride 114 H (98-107) meq/L Carbon Dioxide 19.6 L (21.0-32.0) meq/L Anion Gap 7 (5-15) meq/L BUN 10 (7-18) mg/dL Creatinine 0.70 (0.50-1.00) mg/dL Estimated GFR Greater than 89 (>89) mL/min POC Glucose 118 H (68-110) mg/dl Random Glucose 81 (74-106) mg/dL Hemoglobin A1c (4.3-6.0) % Calcium 8.7 (8.5-10.1) mg/dL Total Creatine Kinase (26-192) U/L Troponin I (0.02-0.05) ng/mL Triglycerides 207 H (42-150) mg/dL Cholesterol 204 H (120-200) mg/dL LDL Cholesterol, Calc 129 H (0-99) mg/dL HDL Cholesterol 33.7 L (40.0-60.0) mg/dL Cholesterol/HDL Ratio 6.05 Ratio Vitamin B12 (193-986) pg/mL TSH (0.358-3.740) uIU/mL Urine Color (Yellw/Straw) Urine Clarity (Clear) Urine pH (5.0-8.5) Ur Specific Axton (1.002-1.035) Urine Protein (Neg-Trace) mg/dL Urine Glucose (UA) (Negative) mg/dL Urine Ketones (Negative) mg/dL Urine Occult Blood (Negative) Urine Nitrate (Negative) Urine Bilirubin (Negative) Urine Urobilinogen (Less than 2) mg/dL Ur Leukocyte Esterase (Negative) Ur Squamous Epith Cells (0-5) /hpf Amorphous Sediment (None) /hpf Urine Bacteria (None) /hpf Micro UA Comment Urine Culture Comments GREGORY Screen (Neg) RPR (Nonreactive) Blood Type Blood Type Recheck Antibody Screen 07/13/18 07/13/18 07/13/18 Range/Units 05:53 12:29 17:37 WBC (4.0-11.0) th/mm3 RBC (4.00-5.30) mil/mm3 Hgb (11.6-15.3) gm/dL Hct (35.0-46.0) % MCV (80.0-100.0) fL MCH (27.0-34.0) pg MCHC (32.0-36.0) % RDW (11.6-17.2) % Plt Count (150-450) th/mm3 MPV (7.0-11.0) fL Neut % (Auto) (16.0-70.0) % Lymph % (Auto) (9.0-44.0) % Sandoval % (Auto) (0.0-8.0) % Eos % (Auto) (0.0-4.0) % Baso % (Auto) (0.0-2.0) % Neut # (Auto) (1.8-7.7) th/mm3 Lymph # (Auto) (1.0-4.8) th/mm3 Sandoval # (Auto) (0.0-0.9) th/mm3 Eos # (Auto) (0.0-0.4) th/mm3 Baso # (Auto) (0.0-0.2) th/mm3 WBC Differential Differential Comment ESR (0-20) mm/hr PT (9.8-11.6) sec INR Ratio APTT (24.3-30.1) sec Sodium (136-145) meq/L Potassium (3.5-5.1) meq/L Chloride (98-107) meq/L Carbon Dioxide (21.0-32.0) meq/L Anion Gap (5-15) meq/L BUN (7-18) mg/dL Creatinine (0.50-1.00) mg/dL Estimated GFR (>89) mL/min POC Glucose 104 129 H (68-110) mg/dl Random Glucose (74-106) mg/dL Hemoglobin A1c 5.0 (4.3-6.0) % Calcium (8.5-10.1) mg/dL Total Creatine Kinase (26-192) U/L Troponin I (0.02-0.05) ng/mL Triglycerides (42-150) mg/dL Cholesterol (120-200) mg/dL LDL Cholesterol, Calc (0-99) mg/dL HDL Cholesterol (40.0-60.0) mg/dL Cholesterol/HDL Ratio Ratio Vitamin B12 (193-986) pg/mL TSH (0.358-3.740) uIU/mL Urine Color (Yellw/Straw) Urine Clarity (Clear) Urine pH (5.0-8.5) Ur Specific A[place] (1.002-1.035) Urine Protein (Neg-Trace) mg/dL Urine Glucose (UA) (Negative) mg/dL Urine Ketones (Negative) mg/dL Urine Occult Blood (Negative) Urine Nitrate (Negative) Urine Bilirubin (Negative) Urine Urobilinogen (Less than 2) mg/dL Ur Leukocyte Esterase (Negative) Ur Squamous Epith Cells (0-5) /hpf Amorphous Sediment (None) /hpf Urine Bacteria (None) /hpf Micro UA Comment Urine Culture Comments GREGORY Screen (Neg) RPR (Nonreactive) Blood Type Blood Type Recheck Antibody Screen Imaging Data Radiologist's impression: Chest X-Ray 07/12/18 01:19 CONCLUSION: No acute cardiopulmonary process. Head CT 07/12/18 01:19 CONCLUSION: Negative noncontrast head CT. . Head CTA 07/12/18 01:19 CONCLUSION: Negative CTA. Neck CTA 07/12/18 02:55 CONCLUSION: 1. Right carotid bulb ulcer. 2. Calcified plaque at the left carotid bulb without significant stenosis. Head MRI 07/12/18 12:36 CONCLUSION: Examination quality is mildly degraded by motion artifact. Otherwise, no acute intracranial abnormality is identified. There are no findings to indicate recent ischemia. Head MRA 07/12/18 12:36 CONCLUSION: 1. Negative MRA [place] ([place]) non contrast. ECG Data Attestation: I personally reviewed and interpreted this ECG as follows: Prior ECG tracings: available for review Interpretation: EKG obtained in 1:22 AM revealed ventricular rate of 79 bpm normal sinus rhythm nonspecific ST-T wave abnormalities left atrial hypertrophy no STEMI QTc within normal limits. Interval within normal limits no signs of acute ischemia The patient had an episode of sinus tachycardia with heart rate up in the 140s 150s she was given a liter of fluids and IV Ativan and by the time of the EKG was repeated she was back on sinus rhythm with a heart rate of 86 bpm and no EKG changes when compared to the previous one from earlier today Discharge Plan Discharge Disposition Patient Disposition: 30 Still Patient Discharge Order Discharge Orders: Vascular Surgery Clear for Discharge (Routine); Ordered 07/13/18 Ordered By: Alejandro Velasco Discharge Details Diagnosis: TIA (transient ischemic attack), Carotid ulcer Physicians Team ED Provider: Santos Gomez Primary Care Provider: UNKNOWN, Attending Provider: Jeison Rodriguez Other Providers: Alejandro Velasco ; Lenard Brown ; Katharina Gamez ; Ben Lindquist Discharge Interventions Interventions: ED Discharge Assessment Last Done: 07/12/18 15:41 Vital Signs Last Done: 07/12/18 15:30 Status ED Status: Left Department Discharge Information Discharge Date/Time: 07/12/18 15:43
[2018-07-12 02:25] LABS: Amorphous Sediment,Urine Rare /hpf; Bacteria,Urine Rare /hpf; Bilirubin,Urine Negative (Negative); Clarity,Urine Cloudy (Clear); Color,Urine Yellow (Yellw/Straw); Glucose,Urine (UA) Negative (Negative); Leukocyte Esterase,Urine Negative (Negative); Nitrite,Urine Negative (Negative); Specific Gravity,Urine 1.015 (1.002-1.035); Squamous Epithelial Cell,Urine 1 /hpf (0-5); Urobilinogen,Urine 4 or Greater mg/dL (Less than 2)
[2018-07-12 02:33] LABS: Creatine Kinase 60 U/L (26-192)
--- NOTE | 2018-07-12 03:27 | CT ---
EXAM DATE: 07/12/2018 3:20 AM EDT AGE/SEX: 48 years / Female INDICATIONS: Left arm numbness, difficulty speaking. CLINICAL DATA: This is the patient's initial encounter. Patient reports that signs and symptoms have been present for 1 day and indicates a pain score of 0/10. MEDICAL/SURGICAL HISTORY: Diabetes. Hypertension. Transient ischemic attack. Hysterectomy. RADIATION DOSE: 56.35 CTDI (mGy) COMPARISON: No prior exams available for comparison. TECHNIQUE: CT of the head without contrast. Using automated exposure control and adjustment of the mA and/or kV according to patient size, radiation dose was kept as low as reasonably achievable to ob tain optimal diagnostic quality images. DICOM format image data is available electronically for revi ew and comparison. FINDINGS: Cerebrum: The ventricles are normal for age. No evidence of midline shift, mass lesion, hemorrhage or acute infarction. No extraaxial fluid collections are seen. Posterior Fossa: The cerebellum and brainstem are intact. The 4th ventricle is midline. The cerebe llopontine angle is unremarkable. Extracranial: The visualized portion of the orbits is intact. Skull: The calvaria is intact. No evidence of skull fracture. CONCLUSION: Negative noncontrast head CT. . Electronically signed by: Corey Herman MD 07/12/2018 3:26 AM EDT
--- NOTE | 2018-07-12 04:01 | CT ---
EXAM DATE: 07/12/2018 3:32 AM EDT AGE/SEX: 48 years / Female INDICATIONS: Left arm numbness, difficulty speaking. CLINICAL DATA: This is the patient's initial encounter. Patient reports that signs and symptoms have been present for 1 day and indicates a pain score of 0/10. MEDICAL/SURGICAL HISTORY: Diabetes. Hypertension. Transient ischemic attack. Hysterectomy. RADIATION DOSE: 10.00 CTDI (mGy) COMPARISON: No prior exams available for comparison. TECHNIQUE: Volumetric scanning was performed using a multi-row detector CT scanner during bolus infu inez of 75 ml Omnipaque 350 (iohexol) nonionic water-soluble contrast as a single exam dose. The d agusto was post processed with a variety of visualization algorithms including full volume maximum inten sity projection, multi-planar sliding thin slab reformation, curved planar reformation, and surface r endering techniques. Using automated exposure control and adjustment of the mA and/or kV according t o patient size, radiation dose was kept as low as reasonably achievable to obtain optimal diagnostic quality images. DICOM format image data is available electronically for review and comparison. FINDINGS: There is excellent visualization of the major intracranial arteries out to the second-order branch ve ssels. There is no evidence for aneurysm, vessel truncation or stenosis, and no evidence for vascula r malformation. Much of the flow to the right posterior cerebral artery arises from the right interna l carotid artery. Much of the flow to the left posterior cerebral artery arises from the basilar noemy ry. This is a normal variant. CONCLUSION: Negative CTA. Electronically signed by: Corey Herman MD 07/12/2018 4:00 AM EDT
--- NOTE | 2018-07-12 04:09 | CT ---
EXAM DATE: 07/12/2018 3:40 AM EDT AGE/SEX: 48 years / Female INDICATIONS: Left arm numbness, difficulty speaking. CLINICAL DATA: This is the patient's initial encounter. Patient reports that signs and symptoms have been present for 1 day and indicates a pain score of 0/10. MEDICAL/SURGICAL HISTORY: Diabetes. Hypertension. Transient ischemic attack. Hysterectomy. RADIATION DOSE: 10.00 CTDI (mGy) COMPARISON: [facility], CTA HEAD W CONTRAST W 3D, 07/12/2018. . TECHNIQUE: Volumetric scanning was performed using a multirow detector CT scanner during bolus infus ion of 75 ml Omnipaque 350 (iohexol) nonionic water-soluble contrast as a single exam dose. The da ta was postprocessed with a variety of visualization algorithms including full-volume maximum intensi ty projection, multiplanar sliding thin-slab reformation, curved-planar reformation, and surface-rend ering techniques. Using automated exposure control and adjustment of the mA and/or kV according to p atient size, radiation dose was kept as low as reasonably achievable to obtain optimal diagnostic lillie lity images. DICOM format image data is available electronically for review and comparison. FINDINGS: Aortic Arch: There is a three-vessel origin of the great vessels from the aorta. No evidence of ost ial narrowing Right Carotid: There is mild plaque at the right carotid bulb. There is an ulcer at the posterior me dial carotid bulb region. This could be a source for emboli. The ulcer measures approximately 8 mm in length, 3 mm in transverse dimension and 3 mm in AP dimension. No thrombus is seen within it. The in ternal and external carotid carotid arteries are patent. Left Carotid: The common carotid artery is intact. There is a calcified plaque at the carotid bulb w ithout significant stenosis. The internal carotid artery lumen is smooth without stenosis. The exter nal carotid artery is intact. Vertebrals: The vertebral arteries have a symmetric diameter. No stenotic lesions are seen. Percent stenosis is calculated using the diameter of the stenotic region over the diameter of the nor mal distal internal carotid artery. CONCLUSION: 1. Right carotid bulb ulcer. 2. Calcified plaque at the left carotid bulb without significant stenosis. Electronically signed by: Corey Herman MD 07/12/2018 4:08 AM EDT
[2018-07-12] MEDS ORDERED: Acetaminophen 325 MG Tablet PO PRN (05:21)
[2018-07-12] MEDS ORDERED: Temazepam 15 MG Capsule PO PRN (05:21)
[2018-07-12] MEDS: Sod Chloride 0.9% Inj 1,000 ML IV.CONT SCH ×2 (05:52→17:08)
--- NOTE | 2018-07-12 10:48 | P.CONVS ---
History of Present Illness Service: vascular surgery Consult date: 07/12/18 Reason for Consult: R carotid ulcer Primary Care Provider: UNKNOWN Chief Complaint: confusion and L UE tingling History of Present Illness: 48 yo female with a history of what she terms "stroke like migraines" and a week 's history of waking up confused with L UE tingling. She also notes that she gets L UE tingling with her intermittent shortness of breath, which she temporally associates with episodic tachycardia. No other lateralizing symptoms. Has atherosclerotic risk factors of DM, HTN, HOL, and smoking. Review of Systems Constitutional: Reports headache(s), Denies fever(s) Eyes: Denies change in vision Cardiovascular: Reports fainting, Reports fast heart rate, Reports irregular heart rhythm, Reports shortness of breath Respiratory: Reports cough Neurologic: Reports confusion, Reports headache(s), Reports memory loss PMFSH - History History Provided By: Patient - Medical History Medical History: Medical History (Last Reviewed 07/12/18 @ 10:40 by Alejandro Velasco MD) Diabetes Hx of hysterectomy Hypertension TIA (transient ischemic attack) - Surgical History Surgical History: Surgical History (Last Reviewed 07/12/18 @ 10:40 by Alejandro Velasco MD) Hx of laminectomy - Tobacco History Second Hand Smoke Exposure: Yes Tobacco Use In Past 30 Days: Yes Smoking Status: Current every day smoker Tobacco Type: Cigarettes - Alcohol History How Often Do You Have a Drink Containing Alcohol: Monthly or less - Substance Use History Substance History: No History of Abuse - Travel History Recent Travel in the USA Within the Last 8 Weeks: No Recent Travel Out of the Country Within the Last 8 Weeks: No - Immunization History Tetanus Immunization: Unsure Hx Influenza Vaccine This Season: No Medications and Allergies Active Medications: Active Medications Acetaminophen (Tylenol) 650 mg PO Q4H PRN PRN Reason: Temp > 100.4 Sodium Chloride (Ns Inj) 1,000 mls @ 70 mls/hr IV.CONT .[id number] [facility] Stop: 07/12/18 15:47 Last Admin: 07/12/18 05:36 Dose: Not Given Sodium Chloride (Ns Inj) 1,000 mls @ 100 mls/hr IV.CONT .Q10H [facility] Last Admin: 07/12/18 05:52 Dose: 100 mls/hr Ondansetron HCl (Zofran Inj) 4 mg IV.PUSH Q6H PRN PRN Reason: NAUSEA OR VOMITING Sodium Chloride (Ns Flush) 2 ml IV.FLUSH PRN PRN PRN Reason: FLUSH AFTER USING IV ACCESS Temazepam (Restoril) 15 mg PO HS PRN PRN Reason: INSOMNIA Allergies Allergy/AdvReac Type Severity Reaction Status Date / Time aspirin Allergy Severe Anaphylaxis Unverified 09/12/17 18:17 codeine Allergy Severe Anaphylaxis Unverified 09/12/17 18:17 ibuprofen Allergy Severe Anaphylaxis Unverified 09/12/17 18:17 Physical Exam Vital Signs / I&O: Vital Signs 07/12/18 01:05 07/12/18 01:52 07/12/18 03:00 Temperature 98.1 F Pulse Rate 84 84 88 Respiratory Rate 18 18 Blood Pressure 161/88 H 123/62 Pulse Oximetry 100 100 99 07/12/18 06:07 07/12/18 07:30 Temperature Pulse Rate 76 77 Respiratory Rate 18 18 Blood Pressure 142/92 H 144/83 H Pulse Oximetry 99 98 Intake & Output 07/11/18 07/12/18 07/12/18 18:59 06:59 18:59 Weight 63.049 kg Neuro: alert, no distress; WATTS with 5/5 strength. HEENT: NC/AT; anicteric sclera Neck: no JVD Heart: reg rate, no M Lungs: clear B Vascular: palpable UE pulses Laboratory Results - last 24 hr 07/12/18 07/12/18 07/12/18 01:50 01:50 01:50 WBC 8.9 RBC 4.12 Hgb 13.2 Hct 38.3 MCV 93.0 MCH 32.2 MCHC 34.6 RDW 12.7 Plt Count 241 MPV 8.1 Neut % (Auto) 42.9 Lymph % (Auto) 46.5 H [place] % (Auto) 7.4 Eos % (Auto) 2.5 Baso % (Auto) 0.7 Neut # (Auto) 3.8 Lymph # (Auto) 4.1 [place] # (Auto) 0.7 Eos # (Auto) 0.2 Baso # (Auto) 0.1 WBC Differential . Differential Comment Auto diff final PT 10.3 INR 1.0 APTT 27.1 Sodium 144 Potassium 3.3 L Chloride 114 H Carbon Dioxide 23.2 Anion Gap 7 BUN 16 Creatinine 0.86 Estimated GFR 71 L Random Glucose 89 Calcium 8.5 Total Creatine Kinase 60 Troponin I Less than 0.02 L Urine Color Urine Clarity Urine pH Ur Specific [place] Urine Protein Urine Glucose (UA) Urine Ketones Urine Occult Blood Urine Nitrate Urine Bilirubin Urine Urobilinogen Ur Leukocyte Esterase Ur Squamous Epith Cells Amorphous Sediment Urine Bacteria Micro UA Comment Urine Culture Comments Blood Type Blood Type Recheck Antibody Screen 07/12/18 07/12/18 01:50 02:00 WBC RBC Hgb Hct MCV MCH MCHC RDW Plt Count MPV Neut % (Auto) Lymph % (Auto) [place] % (Auto) Eos % (Auto) Baso % (Auto) Neut # (Auto) Lymph # (Auto) [place] # (Auto) Eos # (Auto) Baso # (Auto) WBC Differential Differential Comment PT INR APTT Sodium Potassium Chloride Carbon Dioxide Anion Gap BUN Creatinine Estimated GFR Random Glucose Calcium Total Creatine Kinase Troponin I Urine Color Yellow Urine Clarity Cloudy H Urine pH 8.0 Ur Specific [place] 1.015 Urine Protein Negative Urine Glucose (UA) Negative Urine Ketones Negative Urine Occult Blood Negative Urine Nitrate Negative Urine Bilirubin Negative Urine Urobilinogen 4 or greater Ur Leukocyte Esterase Negative Ur Squamous Epith Cells 1 Amorphous Sediment Rare H Urine Bacteria Rare H Micro UA Comment Culture not ind Urine Culture Comments Culture not ind Blood Type A Positive Blood Type Recheck Required Antibody Screen Negative Impressions Chest X-Ray 07/12/18 01:19 CONCLUSION: No acute cardiopulmonary process. Head CT 07/12/18 01:19 CONCLUSION: Negative noncontrast head CT. . Head CTA 07/12/18 01:19 CONCLUSION: Negative CTA. Neck CTA 07/12/18 02:55 CONCLUSION: 1. Right carotid bulb ulcer. 2. Calcified plaque at the left carotid bulb without significant stenosis. Assessment and Plan - Assessment (1) Carotid ulcer Code(s): I65.29 - Occlusion and stenosis of unspecified carotid artery Status : Acute - Plan 48 yo female with neurological symptoms not clearly hemispheric and carotid- based. Does have a carotid ulcer on CTA that I reviewed. Needs aggressive medical management and maybe carotid intervention, which given the ulcer will likely be replacement. Would only do that if intracranial imaging shows R sided hemispheric ischemic pathology or if neurology feels symptoms carotid based. 1. Certainly needs medical management. Can't have ASA because of mindy magdalena allergy, so I recommend plavix for antiplatelet therapy. 2. Needs statin daily. 3. Smoking cessation. I discussed smoking cessation with her today. 4. Check A1c 5. Rec neurology consultation. 6. At a minimum, I will arrange f/u in my clinic in 1m. Will follow. Alejandro Velasco MD FACS RPVI set up [employer] [facility] - Heart and Vascular Surgery at [place] [phone]
[2018-07-12] MEDS ORDERED: Dextrose 50% in Water 50 ML Vial IV.PUSH PRN (12:34)
--- NOTE | 2018-07-12 13:13 | P.HPIM ---
History of Present Illness Primary Care Physician: UNKNOWN Chief Complaint: confusion and L UE tingling History of Present Illness: 48-year-old white female with a history of diabetes mellitus, hypertension, TIAs , migraine headaches presents to the emergency room due to acute symptoms of left upper arm numbness tingling, speech difficulties, heart palpitations and anxiety which lasted for a few minutes. Due to the fact that this was a repeat episode with similar symptoms happening 6 days ago, she came to the emergency room for further evaluation. She states that her neurologist Dr. Redman in [place] states that she has a history of previous TIAs and felt her most recent episode may be due to nocturnal seizures versus complex migraine and was sending her for outpatient CAT a for further workup prior to this particular episode that happened earlier this morning. Currently, she feels better has no recurrent symptoms of palpitations nor any weakness or numbness. She has no active headaches or visual changes at this time. She states that she does have chronic pain of her neck and back and is on fentanyl 50 MCG's on every 72 hours along with Percocet which he takes every 4 hours. Inpatient Certification: I certify that the inpatient services were ordered in accordance with Medicare regulations governing the order. This includes certification that hospital inpatient services are reasonable and necessary and in the case of services not specified as inpatient-only under 42 CFR 419.22(n), that they are appropriately provided as inpatient services in accordance to with the 2-midnight benchmark under 43 CFR 412.3(e) Estimated Total Length of Stay (Days): 3 Plans for Post Hospital Care: Home Review of Systems All other systems reviewed negative except as stated in [facility] - History History Provided By: Patient - Medical History Medical History: Medical History (Last Updated 07/12/18 @ 13:09 by Monica Grant MD) Chronic neck and back pain Diabetes Hx of hysterectomy Hypertension Migraine TIA (transient ischemic attack) - Surgical History Surgical History: Surgical History (Last Reviewed 07/12/18 @ 13:09 by Monica Grant MD) Hx of laminectomy - Family History Family History: Family History (Last Updated 07/12/18 @ 13:10 by Monica Grant MD) Father CVA (cerebral vascular accident) Mother CVA (cerebral vascular accident) - Tobacco History Second Hand Smoke Exposure: Yes Tobacco Use In Past 30 Days: Yes Smoking Status: Current every day smoker Tobacco Type: Cigarettes - Alcohol History How Often Do You Have a Drink Containing Alcohol: Monthly or less - Substance Use History Substance History: No History of Abuse - Travel History Recent Travel in the [place] Within the Last 8 Weeks: No Recent Travel Out of the Country Within the Last 8 Weeks: No - Immunization History Tetanus Immunization: Unsure Hx Influenza Vaccine This Season: No Medications and Allergies Active Medications: Active Medications Acetaminophen (Tylenol) 650 mg PO Q4H PRN PRN Reason: Temp > 100.4 Clopidogrel Bisulfate (Plavix) 75 mg PO DAILY ANTONIETA Dextrose (D50w Vial) 50 ml IV.PUSH UNSCH PRN PRN Reason: PER HYPOGLYCEMIA PROTOCOL Enalaprilat (Vasotec Inj) 1.25 mg IV.PUSH Q4H PRN PRN Reason: For SBP > 220 or DBP > 120 Enoxaparin Sodium (Lovenox Inj) 40 mg SQ Q24H [facility] Glucagon (Glucagon Inj) 1 mg OTHER UNSCH PRN PRN Reason: for Hypoglycemia Protocol Sodium Chloride (Ns Inj) 1,000 mls @ 70 mls/hr IV.CONT .[id number] [facility] Stop: 07/12/18 15:47 Last Admin: 07/12/18 05:36 Dose: Not Given Sodium Chloride (Ns Inj) 1,000 mls @ 100 mls/hr IV.CONT .Q10H [facility] Last Admin: 07/12/18 05:52 Dose: 100 mls/hr Insulin Aspart (Novolog Insulin Correctional Sugar Inj) 0 unit SQ ACHS ANTONIETA; Protocol Ondansetron HCl (Zofran Inj) 4 mg IV.PUSH Q6H PRN PRN Reason: NAUSEA OR VOMITING Pravastatin Sodium (Pravachol) 40 mg PO HS ANTONIETA Sodium Chloride (Ns Flush) 2 ml IV.FLUSH PRN PRN PRN Reason: FLUSH AFTER USING IV ACCESS Sodium Chloride (Ns Flush) 2 ml IV.FLUSH BID ANTONIETA Sodium Chloride (Ns Flush) 2 ml IV.FLUSH PRN PRN PRN Reason: FLUSH AFTER USING IV ACCESS Temazepam (Restoril) 15 mg PO HS PRN PRN Reason: INSOMNIA Allergies Allergy/AdvReac Type Severity Reaction Status Date / Time aspirin Allergy Severe Anaphylaxis Verified 07/12/18 15:00 codeine Allergy Severe Anaphylaxis Verified 07/12/18 15:00 ibuprofen Allergy Severe Anaphylaxis Verified 07/12/18 15:00 Home Medications Medication Instructions Recorded Confirmed Type clopidogrel [Plavix] 75 mg PO EVERY OTHER DAY 07/12/18 07/12/18 History fenofibrate nanocrystallized 48 mg PO DAILY 07/12/18 07/12/18 History fentanyl 1 patch TRANSDERMAL Q72H 07/12/18 07/12/18 History ondansetron 4 mg PO BID PRN 07/12/18 07/12/18 History oxycodone-acetaminophen [Percocet] 1 tab PO Q6H PRN 07/12/18 07/12/18 History sumatriptan succinate 50 mg PO Q2-4H PRN 07/12/18 07/12/18 History topiramate 200 mg PO HS 07/12/18 07/12/18 History verapamil 120 mg PO HS 07/12/18 07/12/18 History Exam Vital signs: Vital Signs 07/12/18 01:05 07/12/18 01:52 07/12/18 03:00 Temperature 98.1 F Pulse Rate 84 84 88 Respiratory Rate 18 18 Blood Pressure 161/88 H 123/62 Pulse Oximetry 100 100 99 07/12/18 06:07 07/12/18 07:30 Temperature Pulse Rate 76 77 Respiratory Rate 18 18 Blood Pressure 142/92 H 144/83 H Pulse Oximetry 99 98 Intake & Output 07/11/18 07/12/18 07/12/18 18:59 06:59 18:59 Weight 63.049 kg Narrative: GENERAL: Well-nourished well-developed white female no acute distress SKIN: Warm and dry. HEAD: Atraumatic. Normocephalic. EYES: Pupils equal and round. No scleral icterus. No injection or drainage. ENT: No nasal bleeding or discharge. Mucous membranes pink and moist. NECK: Trachea midline. No JVD. CARDIOVASCULAR: Regular rate and rhythm. RESPIRATORY: No accessory muscle use. Clear to auscultation. Breath sounds equal bilaterally. GASTROINTESTINAL: Abdomen soft, non-tender, nondistended. Hepatic and splenic margins not palpable. MUSCULOSKELETAL: Extremities without clubbing, cyanosis, or edema. No obvious deformities. NEUROLOGICAL: Awake and alert to person place time and situation. No obvious cranial nerve deficits. Motor grossly within normal limits. Five out of 5 muscle strength in the arms and legs. Normal speech. PSYCHIATRIC: Appropriate mood and affect; insight and judgment normal. Results - Labs CBC & Chem 7: 07/13/18 05:53 07/13/18 05:53 Labs: Short CBC 07/12/18 Range/Units 01:50 WBC 8.9 (4.0-11.0) th/mm3 Hgb 13.2 (11.6-15.3) gm/dL Hct 38.3 (35.0-46.0) % Plt Count 241 (150-450) th/mm3 BMP 07/12/18 01:50 Sodium 144 Potassium 3.3 L Chloride 114 H Carbon Dioxide 23.2 BUN 16 Creatinine 0.86 Calcium 8.5 Cardiac Enzymes 07/12/18 Range/Units 01:50 Total Creatine Kinase 60 (26-192) U/L Troponin I Less than 0.02 L (0.02-0.05) ng/mL Urine 07/12/18 Range/Units 02:00 Urine Color Yellow (Yellw/Straw) Urine Clarity Cloudy H (Clear) Urine pH 8.0 (5.0-8.5) Ur Specific [place] 1.015 (1.002-1.035) Urine Protein Negative (Neg-Trace) mg/dL Urine Glucose (UA) Negative (Negative) mg/dL - Imaging Impressions Chest X-Ray 07/12/18 01:19 CONCLUSION: No acute cardiopulmonary process. Head CT 07/12/18 01:19 CONCLUSION: Negative noncontrast head CT. . Head CTA 07/12/18 01:19 CONCLUSION: Negative CTA. Neck CTA 07/12/18 02:55 CONCLUSION: 1. Right carotid bulb ulcer. 2. Calcified plaque at the left carotid bulb without significant stenosis. - ECG Attestation: I personally reviewed and interpreted this ECG as follows: Prior ECG tracings: not available for review Interpretation: Normal sinus rhythm with heart rate [address]-T wave changes Caprini VTE Risk Assessment Caprini VTE Risk Assessment: Moderate/High Risk (score >= 2) Caprini Risk Assessment Model: Point Value = 1 Point Value = 2 Point Value = 3 Point Value = 5 Age 41-60 Minor surgery BMI > 25 kg/m2 Swollen legs Varicose veins or History of unexplained or recurrent spontaneous Oral contraceptives or hormone replacement Sepsis (< 1 month) Serious lung disease, including pneumonia (< 1 month) Abnormal pulmonary function Acute myocardial infarction Congestive heart failure (< 1 month) History of inflammatory bowel disease Medical patient at bed rest Age 61-74 Arthroscopic surgery Major open surgery (> 45 min) Laparoscopic surgery (> 45 min) Malignancy Confined to bed (> 72 hours) Immobilizing plaster cast Central venous access Age >= 75 History of VTE Family history of VTE Factor V Leiden Prothrombin [id number] Lupus anticoagulant Anticardiolipin antibodies Elevated serum homocysteine Heparin-induced thrombocytopenia Other congenital or acquired thrombophilia Stroke (< 1 month) Elective arthroplasty Hip, pelvis, or leg fracture Acute spinal cord injury (< 1 month) Prophylaxis Regimen: Total Risk Factor Score Risk Level Prophylaxis Regimen 0-1 Low Early ambulation 2 Moderate Order ONE of the following: *Sequential Compression Device (SCD) *Heparin 5000 units SQ BID 3-4 Higher Order ONE of the following medications: *Heparin 5000 units SQ TID *Enoxaparin/Lovenox 40 mg SQ daily (WT < 150 kg, CrCl > 30 mL/min) *Enoxaparin/Lovenox 30 mg SQ daily (WT < 150 kg, CrCl > 10-29 mL/min) *Enoxaparin/Lovenox 30 mg SQ BID (WT < 150 kg, CrCl > 30 mL/min) AND/OR *Sequential Compression Device (SCD) 5 or more Highest Order ONE of the following medications: *Heparin 5000 units SQ TID (Preferred with Epidurals) *Enoxaparin/Lovenox 40 mg SQ daily (WT < 150 kg, CrCl > 30 mL/min) *Enoxaparin/Lovenox 30 mg SQ daily (WT < 150 kg, CrCl > 10-29 mL/min) *Enoxaparin/Lovenox 30 mg SQ BID (WT < 150 kg, CrCl > 30 mL/min) AND *Sequential Compression Device (SCD) Assessment and Plan - Plan 48-year-old white female with a history of TIA, migraine headaches presented to the emergency room with recurrent symptoms of left upper extremity numbness, heart palpitations, and anxiety 1. TIA versus complex migraine, rule out underlying seizuresat this time will admit the patient for further workup evaluation with MRI of the brain, neurology consultation, EEG, 2D echo. CTA showed right carotid bulb ulceration and vascular surgery has been consulted. Will place patient on Plavix due to patient's history of allergy to aspirin. Continue close neurological checks. 2. Right carotid bulb ulcerationmedical management, Plavix, obtain fasting blood profile and initiate statin; appreciate vascular surgery consult and follow-up with Dr. Velasco. 3. Diabetes mellitus type 2continue with sliding scale insulin and monitor blood sugars. 4. History of migraine headaches. Patient states that she has been on verapamil and Topamax prescribed by her neurologist., Continue home medications. 5. DVT prophylaxisLovenox. 6. Tobacco abuse. Cessation counseling provided
--- NOTE | 2018-07-12 13:24 | ECG ---
Date Performed: 07/12/2018 Time Performed: 03:33:34 PTAGE: 48 years EKG: Sinus rhythm NORMAL ECG PREVIOUS TRACING : 07/12/2018 01.22 Since the previous tracing, no significant change noted DOCTOR: Lenard Holt Interpretating Date/Time 07/12/2018 13:24:10
--- NOTE | 2018-07-12 14:53 | MR ---
EXAM DATE: 07/12/2018 1:54 PM EDT AGE/SEX: 48 years / Female INDICATIONS: CVA. Left sided weakness and possible seizure. CLINICAL DATA: This is the patient's initial encounter. Patient reports that signs and symptoms have been present for 1 day and indicates a pain score of 5/10. MEDICAL/SURGICAL HISTORY: Diabetes mellitus type II. Hypertension. Spinal bifida occult. Fusi on, cervical. Discectomy, lumbar. COMPARISON: [facility] – [place], CT HEAD W/O CONTRAST, 07/12/2018. . TECHNIQUE: Multiplanar, multisequence examination of the brain was performed without contrast. FINDINGS: Examination quality is degraded by motion artifact. Cerebrum: Ventricles are normal. No midline shift, mass lesion, hemorrhage or acute infarction. No extraaxial fluid collections are seen. The pituitary gland and suprasellar cistern are normal in con figuration. White Matter: No significant signal abnormalities are seen in the white matter. Posterior Fossa: The cerebellum and brainstem demonstrate no acute abnormality. The 4th ventricle is midline. The cerebellopontine angle is within normal limits. The cerebellar tonsils are normal in p osition. Diffusion Imaging: No areas of restricted diffusion are seen. Extracranial: The visualized sinuses are clear. CONCLUSION: Examination quality is mildly degraded by motion artifact. Otherwise, no acute intracranial abnormali ty is identified. There are no findings to indicate recent ischemia. Electronically signed by: Corey Valencia MD 07/12/2018 2:52 PM EDT
--- NOTE | 2018-07-12 14:54 | MR ---
EXAM DATE: 07/12/2018 1:54 PM EDT AGE/SEX: 48 years / Female INDICATIONS: CVA. Left sided weakness and possible seizures. CLINICAL DATA: This is the patient's initial encounter. Patient reports that signs and symptoms have been present for 1 day and indicates a pain score of 5/10. MEDICAL/SURGICAL HISTORY: Diabetes mellitus type II. Hypertension. Spinal bifida occult. Fusi on, cervical. Discectomy, lumbar. Hand sx. [place] [facility] [place]. . TECHNIQUE: 3D [id number] MRA was performed. Source images, multiplanar STS MIP, and 3D volum e MIP reconstructions were reviewed. FINDINGS: Anterior Circulation: Intracranial Carotid Arteries: Patent. DIOGENES: There is no evidence for aneurysm, vessel truncation or stenosis, and no evidence for vascular m alformation. MCA: There is no evidence for aneurysm, vessel truncation or stenosis, and no evidence for vascular m alformation. Posterior Circulation: Distal Vertebral Arteries: Distal Vertebral arteries are symetrical and patent. Basilar Artery: There is no evidence for aneurysm, vessel truncation or stenosis, and no evidence for vascular malformation. BLAST FURNACE BLOWER and Cerebellar Branches: origin of the right BLAST FURNACE BLOWER. There is no evidence for aneurysm, vessel truncation or stenosis, and no evidence for vascular malformation. CONCLUSION: 1. Negative MRA [place] ([place]) non contrast. Electronically signed by: Melecio Bucio MD 07/12/2018 2:53 PM EDT
[2018-07-12] MEDS: Enoxaparin Inj 40 MG/0.4 ML Syringe SQ SCH (15:02)
--- NOTE | 2018-07-12 17:18 | ECHRPT ---
Indication: CVA/TIA CONCLUSIONS The left ventricular systolic function is normal with an estimated ejection fraction in the range of 55-60%. Wall thickness is normal. Normal left ventricular size. There is mild tricuspid valve regurgitation. The estimated pulmonary arterial pressure is 34 mmHg. BP: / HR: 77 Rhythm: Sinus MEASUREMENTS (Male / Female) Normal Values Technical Quality:Poor 2D ECHO LV Diastolic Diameter PLAX 4.3 cm 4.2 - 5.9 / 3.9 - 5.3 cm LV Systolic Diameter PLAX 3.3 cm IVS Diastolic Thickness 0.7 cm 0.6 - 1.0 / 0.6 - 0.9 cm LVPW Diastolic Thickness 0.7 cm 0.6 - 1.0 / 0.6 - 0.9 cm LV Relative Wall Thickness 0.3 LVOT Diameter 2.0 cm M-MODE Aortic Root Diameter MM 2.3 cm LA Systolic Diameter MM 2.6 cm LA Ao Ratio MM 1.1 AV Cusp Separation MM 1.8 cm DOPPLER AV Peak Velocity 127.0 cm/s AV Peak Gradient 6.5 mmHg LVOT Peak Velocity 92.3 cm/s LVOT Peak Gradient 3.4 mmHg AV Area Cont Eq pk 2.3 cm Mitral E Point Velocity 74.0 cm/s Mitral A Point Velocity 58.7 cm/s Mitral E to A Ratio 1.3 LV E' Lateral Velocity 7.7 cm/s Mitral E to LV E' Lateral Ratio 9.6 LV E' Septal Velocity 7.4 cm/s Mitral E to LV E' Septal Ratio 10.0 TR Peak Velocity 244.0 cm/s TR Peak Gradient 23.8 mmHg Right Atrial Pressure 10.0 mmHg Pulmonary Artery Systolic Pressu 33.8 mmHg Right Ventricular Systolic Press 33.8 mmHg PV Peak Velocity 54.3 cm/s PV Peak Gradient 1.2 mmHg FINDINGS LEFT VENTRICLE The left ventricular systolic function is normal with an estimated ejection fraction in the range of 55-60%. Wall thickness is normal. Normal left ventricular size. RIGHT VENTRICLE Normal right ventricular size and systolic function. LEFT ATRIUM The left atrial size is normal. RIGHT ATRIUM The right atrial size is normal. ATRIAL SEPTUM Normal atrial septal thickness without atrial level shunting by limited color doppler interrogation. AORTA The aortic root and proximal ascending aorta are normal in size on limited imaging. MITRAL VALVE Structurally normal mitral valve. No mitral valve stenosis or regurgitation. AORTIC VALVE Trileaflet aortic valve. No aortic valve stenosis or regurgitation. TRICUSPID VALVE There is mild tricuspid valve regurgitation. The estimated pulmonary arterial pressure is 33.8 mmHg. PULMONARY VALVE No pulmonary valve regurgitation or stenosis. VESSELS The inferior vena cava is normal in size. PERICARDIUM No pericardial effusion. Ben Lindquist MD, FACC (Electronically Signed) Final Date:12 July 2018 17:17
--- NOTE | 2018-07-12 18:02 | MG ---
cc: Lázaro Linda MD, PhD [id number] TECHNIQUE: A 17-channel EEG. DESCRIPTION: The background rhythm reveals a symmetrical alpha rhythm, frequency 8-10 Hz. Amplitude is about 20 microvolts. There is some slowing during drowsiness. The patient appears to fall asleep and there are sleep spindles. Further slowing in the delta frequency during sleep. No epileptiform discharges are identified. No lateralizing features are seen. Occasional vertex sharp waves are identified, which is normal sleep activity. Hyperventilation is not performed. Photic results in a modest driving response. INTERPRETATION: Normal EEG in both the awake and asleep states. Lázaro Linda MD, PhD MARCIO/pj , 05:50 PM , 05:53 PM
[2018-07-12] MEDS: oxyCODONE/Acetaminophen 10/325 Tablet PO PRN (18:13)
[2018-07-12] MEDS: Insulin NovoLOG Aspart Correctional Sugar Inj SQ SCH ×2 (18:56→21:33)
--- NOTE | 2018-07-12 20:05 | MB ---
cc: Lenard Leo MD DATE: 07/12/2018 HISTORY OF PRESENT ILLNESS: A 48-year-old right-handed woman with a history of hypertension, [id number] diabetes, hypercholesterolemia, migraine headaches for years, anxiety and depression. She has been taking Plavix every other day for about 2 weeks. She had seen Dr. Acevedo, I believe, up in [place] and then , which was 1 week ago, she took a Valium, her Topamax, which I believe is 200 mg, and verapamil for migraines and went to bed, woke up at 1 a.m., seemed a little confused, and then she noticed her chest seemed to be having palpitations, and her left arm and face felt numb and then her left arm felt heavy and weak and inability to control it. This lasted about 3 minutes and went away. She called an ambulance, went to the local ER and was subsequently discharged. Had been doing fairly well all week long and then last night again, the same thing happened where she was feeling some chest pressure, some palpitations and then numbness on the left arm and face and this lasted about 3 minutes and then she came to the ER and happened again in the hospital for a brief period. She did not have any vision change with this episode nor was the leg involved. No facial droop or slurred speech. REVIEW OF SYSTEMS: She denies any CABG, stent or angioplasty. She was told maybe by a nurse checking her pulse one time she had AFib but was not told that by her doctor. She has Anxiety and depression. She denies any renal, hepatic or pulmonary disease, thyroid disease, lupus, ulcer, cancer, seizure or stroke. SOCIAL HISTORY: She is a smoker. She is not a drinker, lives with her fiance and her daughter. FAMILY HISTORY: Positive for cancer. Negative for seizure. Positive stroke in both her parents. MEDICATIONS AT HOME: She is on Zofran, Percocet, fentanyl patch, fenofibrate, sumatriptan, verapamil 120 at bedtime, Topamax 200 at bedtime and Plavix every other day 75 mg because evidently they wanted to put her on a low dose. ALLERGIES: SHE IS ALLERGIC TO ASPIRIN, CODEINE, AND IBUPROFEN. PAST MEDICAL HISTORY: She tells me that she has had about over 20 episodes of left face and arm numbness over the last 30 years, maybe about once a year, usually with a migraine headache and she has a long history of migraines. She has never had one without a headache, but these symptoms in the face and arm are very similar or exactly the same as what she has had plenty of times in the past. PHYSICAL EXAMINATION: VITAL SIGNS: On exam, sinus rhythm 161/88. NECK: There were no carotid bruits. HEART: Regular rhythm. I did not detect a murmur. NEUROLOGIC: Pupils are equal. Visual lucero are full. Extraocular movements intact without nystagmus. Face is symmetric with normal sensation. Tongue was midline. There is no drift. She has normal strength in upper and lower extremities bilaterally including the left deltoid, triceps, biceps, finger extensors. Fast finger movements in the left arm. DTRs are trace throughout. Toes downgoing bilaterally. Pinprick is intact throughout face, arm, and leg bilaterally is not ataxic on [id number]. Speech is fluent. She is not aphasic. LABORATORY DATA: The MRI shows no stroke, no old strokes, no new strokes. The FLAIR images were not done, but no white matter changes on the T2 images. The CBC is normal. UA is negative. Basic metabolic profile: Potassium 3.3, otherwise normal. Troponins negative. Coags normal MRA [place] normal. CTA of the head normal. 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 No thrombus is seen in it. CTA of the [place] normal. MRI of the brain negative. I did review those other films with the radiologist. Chest x-ray negative. Echocardiogram normal. IMPRESSION: At first she told me that this arm numbness has never occurred before in her life and then she changed her story later when I asked her why she had taken Plavix 2 weeks ago when this arm numbness just started 1 week ago and she says it actually happened 20 times over the course of her life but always with her headache. The new part is the palpitations and some chest pressure. Possibility could be the left arm symptoms from the heart. I would recommend having cardiology see her. Vascular surgery did see her and they were impressed with the carotid ulcer. They were impressed. Initially, I thought that this carotid ulcer could be symptomatic, but this same symptom has happened so many times in her life, although usually with the headache and this time no headache and not usually with the palpitations. That is probably not the right carotid ulcer causing a problem. Plus there is no evidence for any ischemia on the right brain on the MRI. What I would recommend is having cardiology see her. I cannot say for sure that the right carotid is not symptomatic with these new spells and if vascular surgery thinks that this could be a potential source of emboli then carotid surgery could be considered. In the meantime, we will check a hypercoagulable screen on her, her lipid profile. Continue on daily Plavix. I do not think we can know for sure if that carotid is symptomatic or not, but the fact she has had similar symptoms in her face and arm before would indicate to me probably not, but I can say 100%. We can check an EEG, but I think a seizure is unlikely. MD GILMA Leung/carlo , 07:34 PM , 07:44 PM
[2018-07-12] MEDS: Topiramate 200 MG Tablet PO SCH (21:29)
[2018-07-12] MEDS: Verapamil 120 MG Tablet PO SCH (21:30)
[2018-07-12 22:21] LABS: Chol/HDL Ratio 5.52 Ratio; HDL Cholesterol 37.1 mg/dL (40.0-60.0); Thyroid Stimulating Hormone 0.347 uIU/mL (0.358-3.740)
[2018-07-12] MEDS ORDERED: ALPRAZolam 0.5 MG Tablet PO ONE (23:42)
[2018-07-13] MEDS: oxyCODONE/Acetaminophen 10/325 Tablet PO PRN ×3 (00:19→23:10)
[2018-07-13] MEDS: Sod Chloride 0.9% Inj 1,000 ML IV.CONT SCH ×3 (00:37→22:55)
[2018-07-13 06:44] LABS: Baso # (Auto) 0.1 th/mm3 (0.0-0.2); Baso % (Auto) 0.7 % (0.0-2.0); Eos # (Auto) 0.1 th/mm3 (0.0-0.4); Eos % (Auto) 1.6 % (0.0-4.0); Hematocrit 40.4 % (35.0-46.0); Hemoglobin 13.9 gm/dL (11.6-15.3); Lymph # (Auto) 3.3 th/mm3 (1.0-4.8); Lymph % (Auto) 40.2 % (9.0-44.0); Mean Corpuscular HGB Conc 34.4 % (32.0-36.0); Mean Corpuscular Hemoglobin 31.8 pg (27.0-34.0); Mean Corpuscular Volume 92.4 fL (80.0-100.0); Mono # (Auto) 0.5 th/mm3 (0.0-0.9); Mono % (Auto) 6.4 % (0.0-8.0); Neut # (Auto) 4.2 th/mm3 (1.8-7.7); Neut % (Auto) 51.1 % (16.0-70.0); Platelet Count 256 th/mm3 (150-450); Red Blood Count 4.37 mil/mm3 (4.00-5.30); Red Cell Distribution Width 12.5 % (11.6-17.2); White Blood Count 8.2 th/mm3 (4.0-11.0)
--- NOTE | 2018-07-13 07:01 | P.PNNEU ---
Subjective Subjective Comments: sr st judd overnoc migraine first on in a while Active Medications: Active Medications Acetaminophen (Tylenol) 650 mg PO Q4H PRN PRN Reason: Temp > 100.4 Clopidogrel Bisulfate (Plavix) 75 mg PO DAILY [facility] Last Admin: 07/12/18 15:03 Dose: 75 mg Dextrose (D50w Vial) 50 ml IV.PUSH UNSCH PRN PRN Reason: PER HYPOGLYCEMIA PROTOCOL Enalaprilat (Vasotec Inj) 1.25 mg IV.PUSH Q4H PRN PRN Reason: For SBP > 220 or DBP > 120 Enoxaparin Sodium (Lovenox Inj) 40 mg SQ Q24H [facility] Last Admin: 07/12/18 15:02 Dose: 40 mg Fenofibrate (Tricor) 48 mg PO DAILY [facility] Fentanyl (Duragesic 50 Mcg Patch.72hr) 1 patch T-DERMAL Q3D [facility] Last Admin: 07/12/18 19:17 Dose: 1 patch Glucagon (Glucagon Inj) 1 mg OTHER UNSCH PRN PRN Reason: for Hypoglycemia Protocol Sodium Chloride (Ns Inj) 1,000 mls @ 100 mls/hr IV.CONT .Q10H [facility] Last Admin: 07/13/18 00:37 Dose: 100 mls/hr Insulin Aspart (Novolog Insulin Correctional Sugar Inj) 0 unit SQ ACHS [facility]; Protocol Last Admin: 07/12/18 21:33 Dose: Not Given Ondansetron HCl (Zofran Inj) 4 mg IV.PUSH Q6H PRN PRN Reason: NAUSEA OR VOMITING Ondansetron HCl (Zofran Odt) 4 mg PO Q12H PRN PRN Reason: NAUSEA OR VOMITING Oxycodone/Acetaminophen (Percocet 10/325 Mg) 1 tab PO Q6H PRN PRN Reason: PAIN SCALE 1 TO 10 Last Admin: 07/13/18 00:19 Dose: 1 tab Patch Removal (Remove Old Patch) 1 each T-DERMAL Q3D [facility] Last Admin: 07/12/18 19:19 Dose: 1 each Pravastatin Sodium (Pravachol) 40 mg PO HS [facility] Last Admin: 07/12/18 21:29 Dose: 40 mg Sodium Chloride (Ns Flush) 2 ml IV.FLUSH BID [facility] Last Admin: 07/12/18 21:30 Dose: Not Given Sodium Chloride (Ns Flush) 2 ml IV.FLUSH PRN PRN PRN Reason: FLUSH AFTER USING IV ACCESS Temazepam (Restoril) 15 mg PO HS PRN PRN Reason: INSOMNIA Last Admin: 07/12/18 21:29 Dose: 15 mg Topiramate (Topamax) 200 mg PO [facility] Last Admin: 07/12/18 21:29 Dose: 200 mg Verapamil HCl (Isoptin) 120 mg PO HS [facility] Last Admin: 07/12/18 21:30 Dose: 120 mg Allergies/Adverse Reactions: Allergies Allergy/AdvReac Type Severity Reaction Status Date / Time aspirin Allergy Severe Anaphylaxis Verified 07/12/18 15:00 codeine Allergy Severe Anaphylaxis Verified 07/12/18 15:00 ibuprofen Allergy Severe Anaphylaxis Verified 07/12/18 15:00 Physical Exam Vital signs: Vital Signs 07/12/18 07:30 07/12/18 08:30 07/12/18 10:30 Temperature Pulse Rate 77 78 70 Respiratory Rate 18 18 20 Blood Pressure 144/83 H 130/88 140/92 H Pulse Oximetry 98 100 100 07/12/18 11:30 07/12/18 12:30 07/12/18 13:30 Temperature Pulse Rate 74 74 76 Respiratory Rate 20 15 18 Blood Pressure 138/80 159/87 H 142/82 H Pulse Oximetry 100 100 07/12/18 15:30 07/12/18 19:19 07/12/18 19:27 Temperature 98.2 F Pulse Rate 80 82 Respiratory Rate 15 16 18 Blood Pressure 140/80 170/94 H Pulse Oximetry 98 100 07/12/18 20:00 07/12/18 22:31 07/12/18 23:29 Temperature 98.6 F Pulse Rate 96 H 102 H Respiratory Rate 18 Blood Pressure 175/105 H Pulse Oximetry 100 100 07/13/18 00:00 07/13/18 03:45 07/13/18 04:06 Temperature 98.7 F Pulse Rate 108 H 94 H 100 H Respiratory Rate 18 Blood Pressure 177/100 H Pulse Oximetry 100 Intake & Output 07/12/18 07/12/18 07/13/18 06:59 18:59 06:59 Intake Total 1000 / 1000 1000 / 1000 Balance 1000 / 1000 1000 / 1000 Weight 63.049 kg Intake: IV 1000 / 1000 1000 / 1000 NS Inj 1,000 ML @ 100 mls/hr IV 1000 / 1000 .CONT .Q10H [facility] Rx#:[id number] Oral 0 / 0 Other: # Voids 5 Date of Last Bowel Movement 07/11/18 Narrative: awake alert no more lrm sx moves lue well Objective Laboratory Results - last 24 hr 07/12/18 07/12/18 07/12/18 18:45 20:50 20:50 WBC RBC Hgb Hct MCV MCH MCHC RDW Plt Count MPV Neut % (Auto) Lymph % (Auto) [place] % (Auto) Eos % (Auto) Baso % (Auto) Neut # (Auto) Lymph # (Auto) [place] # (Auto) Eos # (Auto) Baso # (Auto) WBC Differential Differential Comment ESR 15 POC Glucose 86 Triglycerides 197 H Cholesterol 205 H LDL Cholesterol, Calc 129 H HDL Cholesterol 37.1 L Cholesterol/HDL Ratio 5.52 Vitamin B12 280 TSH 0.347 L 07/12/18 07/13/18 21:33 05:53 WBC 8.2 RBC 4.37 Hgb 13.9 Hct 40.4 MCV 92.4 MCH 31.8 MCHC 34.4 RDW 12.5 Plt Count 256 MPV 8.0 Neut % (Auto) 51.1 Lymph % (Auto) 40.2 [place] % (Auto) 6.4 Eos % (Auto) 1.6 Baso % (Auto) 0.7 Neut # (Auto) 4.2 Lymph # (Auto) 3.3 [place] # (Auto) 0.5 Eos # (Auto) 0.1 Baso # (Auto) 0.1 WBC Differential . Differential Comment Auto diff final ESR POC Glucose 118 H Triglycerides Cholesterol LDL Cholesterol, Calc HDL Cholesterol Cholesterol/HDL Ratio Vitamin B12 TSH Review/Management - Review/Management Plan: imp judd las noc major anxiety last pm await cards chol up needs statin with ulcer and plavix hypercoag screen pend holter pend i cannot say whether the r carotid is sx or not if vascular surgery thinks it looks bad enough that it could be cause of sx then they could consider surgery o/w statin and plavix fu eeg o/w could dc neurowise dep on vasc surgery decision
[2018-07-13 07:24] LABS: Anion Gap 7 meq/L (5-15); Blood Urea Nitrogen 10 mg/dL (7-18); Calcium 8.7 mg/dL (8.5-10.1); Carbon Dioxide 19.6 meq/L (21.0-32.0); Chloride 114 meq/L (98-107); Glomerular Filtration Rate Greater Than 89 mL/min (>89); Glucose,Random 81 mg/dL (74-106); Potassium 3.5 meq/L (3.5-5.1); Sodium 141 meq/L (136-145)
[2018-07-13 07:25] LABS: Cholesterol 204 mg/dL (120-200); Triglycerides 207 mg/dL (42-150)
[2018-07-13 07:27] LABS: Chol/HDL Ratio 6.05 Ratio; HDL Cholesterol 33.7 mg/dL (40.0-60.0); LDL Cholesterol,Calculated 129 mg/dL (0-99)
[2018-07-13] MEDS: Fenofibrate 48 MG Tablet PO SCH (08:37)
[2018-07-13] MEDS: Insulin NovoLOG Aspart Correctional Sugar Inj SQ SCH ×4 (11:05→22:53)
--- NOTE | 2018-07-13 14:05 | P.CONCA ---
<Annamaria Thorne N - Last Filed: 07/13/18 13:40> History of Present Illness Service: Cardiology Consult date: 07/13/18 Requesting Physician: Lenard Brown Reason for Consult: Chest pain, palpitations, left arm symptoms Primary Care Provider: UNKNOWN Chief Complaint: confusion and L UE tingling History of Present Illness: This is a 48-year-old female with a history of diabetes mellitus, hypertension, TIAs, migraine headaches, who presented to the emergency department via [facility] with complaints of left upper arm numbness and tingling, speech difficulties, heart palpitations and anxiety which lasted a few minutes. She stated this happened a couple weeks ago as well and was admitted at [facility]. She also states that she has chronic neck and back pain which she takes fentanyl 50 mcgs every 72 hours along with Percocet which she takes every 4 hours. She sees pain management for these chronic conditions. Currently she denies any chest pain, pressure, palpitations , dizziness, edema or shortness of breath. She does complain of a consistent migraine headache that has not been relieved by any pain medication. Review of Systems All other systems reviewed negative except as stated in HPI PMFSH - History History Provided By: Patient - Medical History Medical History: Medical History (Last Reviewed 07/13/18 @ 10:06 by Bimal East) Chronic neck and back pain Diabetes Hx of hysterectomy Hypertension Migraine TIA (transient ischemic attack) - Surgical History Surgical History: Surgical History (Last Reviewed 07/13/18 @ 10:06 by Bimal East) Hx of laminectomy - Family History Family History: Family History (Last Updated 07/12/18 @ 13:10 by Monica Grant MD) Father CVA (cerebral vascular accident) Mother CVA (cerebral vascular accident) - Tobacco History Second Hand Smoke Exposure: Yes Tobacco Use In Past 30 Days: Yes Smoking Status: Current every day smoker Tobacco Type: Cigarettes - Alcohol History How Often Do You Have a Drink Containing Alcohol: Monthly or less - Substance Use History Substance History: No History of Abuse - Travel History Recent Travel in the [place] Within the Last 8 Weeks: No Recent Travel Out of the Country Within the Last 8 Weeks: No - Immunization History Tetanus Immunization: Unsure Hx Influenza Vaccine This Season: No Medications and Allergies Allergies Allergy/AdvReac Type Severity Reaction Status Date / Time aspirin Allergy Severe Anaphylaxis Verified 07/12/18 15:00 codeine Allergy Severe Anaphylaxis Verified 07/12/18 15:00 ibuprofen Allergy Severe Anaphylaxis Verified 07/12/18 15:00 Home Medications Medication Instructions Recorded Confirmed Type clopidogrel [Plavix] 75 mg PO EVERY OTHER DAY 07/12/18 07/12/18 History fenofibrate nanocrystallized 48 mg PO DAILY 07/12/18 07/12/18 History fentanyl 1 patch TRANSDERMAL Q72H 07/12/18 07/12/18 History ondansetron 4 mg PO BID PRN 07/12/18 07/12/18 History oxycodone-acetaminophen [Percocet] 1 tab PO Q6H PRN 07/12/18 07/12/18 History sumatriptan succinate 50 mg PO Q2-4H PRN 07/12/18 07/12/18 History topiramate 200 mg PO HS 07/12/18 07/12/18 History verapamil 120 mg PO HS 07/12/18 07/12/18 History Active Medications: Active Medications Acetaminophen (Tylenol) 650 mg PO Q4H PRN PRN Reason: Temp > 100.4 Clonidine HCl (Catapres) 0.1 mg PO Q6H PRN PRN Reason: SBP> OR = 180, DBP> OR = 100 Last Admin: 07/13/18 08:38 Dose: 0.1 mg Clopidogrel Bisulfate (Plavix) 75 mg PO DAILY [facility] Last Admin: 07/13/18 08:37 Dose: 75 mg Dextrose (D50w Vial) 50 ml IV.PUSH UNSCH PRN PRN Reason: PER HYPOGLYCEMIA PROTOCOL Enalaprilat (Vasotec Inj) 1.25 mg IV.PUSH Q4H PRN PRN Reason: For SBP > 220 or DBP > 120 Enoxaparin Sodium (Lovenox Inj) 40 mg SQ Q24H [facility] Last Admin: 07/12/18 15:02 Dose: 40 mg Fenofibrate (Tricor) 48 mg PO DAILY [facility] Last Admin: 07/13/18 08:37 Dose: 48 mg Fentanyl (Duragesic 50 Mcg Patch.72hr) 1 patch T-DERMAL Q3D [facility] Last Admin: 07/12/18 19:17 Dose: 1 patch Glucagon (Glucagon Inj) 1 mg OTHER UNSCH PRN PRN Reason: for Hypoglycemia Protocol Sodium Chloride (Ns Inj) 1,000 mls @ 100 mls/hr IV.CONT .Q10H [facility] Last Admin: 07/13/18 11:31 Dose: 100 mls/hr Insulin Aspart (Novolog Insulin Correctional Sugar Inj) 0 unit SQ [facility]; Protocol Last Admin: 07/13/18 12:35 Dose: Not Given Ondansetron HCl (Zofran Inj) 4 mg IV.PUSH Q6H PRN PRN Reason: NAUSEA OR VOMITING Ondansetron HCl (Zofran Odt) 4 mg PO Q12H PRN PRN Reason: NAUSEA OR VOMITING Oxycodone/Acetaminophen (Percocet 10/325 Mg) 1 tab PO Q6H PRN PRN Reason: PAIN SCALE 1 TO 10 Last Admin: 07/13/18 11:25 Dose: 1 tab Patch Removal (Remove Old Patch) 1 each T-DERMAL Q3D [facility] Last Admin: 07/12/18 19:19 Dose: 1 each Pravastatin Sodium (Pravachol) 40 mg PO [facility] Last Admin: 07/12/18 21:29 Dose: 40 mg Sodium Chloride (Ns Flush) 2 ml IV.FLUSH BID [facility] Last Admin: 07/13/18 08:37 Dose: Not Given Sodium Chloride (Ns Flush) 2 ml IV.FLUSH PRN PRN PRN Reason: FLUSH AFTER USING IV ACCESS Temazepam (Restoril) 15 mg PO HS PRN PRN Reason: INSOMNIA Last Admin: 07/12/18 21:29 Dose: 15 mg Topiramate (Topamax) 200 mg PO [facility] Last Admin: 07/12/18 21:29 Dose: 200 mg Verapamil HCl (Isoptin) 120 mg PO [facility] Last Admin: 07/12/18 21:30 Dose: 120 mg Exam Vital signs: Vital Signs 07/12/18 15:30 07/12/18 19:19 07/12/18 19:27 Temperature 98.2 F Pulse Rate 80 82 Respiratory Rate 15 16 18 Blood Pressure 140/80 170/94 H Pulse Oximetry 98 100 07/12/18 20:00 07/12/18 22:31 07/12/18 23:29 Temperature 98.6 F Pulse Rate 96 H 102 H Respiratory Rate 18 Blood Pressure 175/105 H Pulse Oximetry 100 100 07/13/18 00:00 07/13/18 03:45 07/13/18 04:06 Temperature 98.7 F Pulse Rate 108 H 94 H 100 H Respiratory Rate 18 Blood Pressure 177/100 H Pulse Oximetry 100 07/13/18 08:00 07/13/18 08:09 07/13/18 11:55 Temperature 98.2 F 98.4 F Pulse Rate 74 78 78 Respiratory Rate 18 18 Blood Pressure 180/100 H 154/88 H Pulse Oximetry 96 98 07/13/18 12:35 Temperature Pulse Rate Respiratory Rate 16 Blood Pressure Pulse Oximetry Intake & Output 07/12/18 07/13/18 07/13/18 18:59 06:59 18:59 Intake Total 1000 / 1000 1000 / 1000 1000 / 1000 Balance 1000 / 1000 1000 / 1000 1000 / 1000 Intake: IV 1000 / 1000 1000 / 1000 1000 / 1000 NS Inj 1,000 ML @ 100 mls/hr IV 1000 / 1000 1000 / 1000 .CONT .Q10H [facility] Rx#:[id number] Oral 0 / 0 Other: # Voids 5 Date of Last Bowel Movement 07/11/18 07/11/18 Narrative: GENERAL: This is a well-nourished, well-developed patient, in no apparent distress. Patient speaks in clear complete sentences. Patient is pleasant. HEENT: Head is atraumatic and normocephalic. Neck is supple without lymphadenopathy and trachea is midline. No JVD or carotid bruits. CARDIOVASCULAR: Regular rate and rhythm without murmurs, gallops, or rubs. RESPIRATORY: Clear to auscultation. Breath sounds equal bilaterally. No wheezes , rales, or rhonchi. Chest wall is nontender. No use of accessory muscles. GASTROINTESTINAL: Abdomen is nontender, nondistended. Abdomen soft. No obvious pulsatile mass or bruit. No CVA tenderness. Strong femoral pulses bilaterally. Normal bowel sounds in all quadrants. MUSCULOSKELETAL: Patient is moving upper and lower extremities freely. No calf tenderness or edema, no Homans sign. Strong pulses in upper and lower extremities. NEUROLOGICAL: Patient is alert and oriented. Cranial nerves 2-12 are grossly intact. No focal deficits and speech is clear. SKIN: No rash and turgor is normal. Results 07/13/18 05:53 07/13/18 05:53 Lipids 07/12/18 07/13/18 Range/Units 20:50 05:53 Triglycerides 197 H 207 H (42-150) mg/dL Cholesterol 205 H 204 H (120-200) mg/dL HDL Cholesterol 37.1 L 33.7 L (40.0-60.0) mg/dL Cholesterol/HDL Ratio 5.52 6.05 Ratio CBC 07/13/18 Range/Units 05:53 WBC 8.2 (4.0-11.0) th/mm3 RBC 4.37 (4.00-5.30) mil/mm3 Hgb 13.9 (11.6-15.3) gm/dL Hct 40.4 (35.0-46.0) % Plt Count 256 (150-450) th/mm3 Neut # (Auto) 4.2 (1.8-7.7) th/mm3 Lymph # (Auto) 3.3 (1.0-4.8) th/mm3 [place] # (Auto) 0.5 (0.0-0.9) th/mm3 Eos # (Auto) 0.1 (0.0-0.4) th/mm3 Baso # (Auto) 0.1 (0.0-0.2) th/mm3 Comprehensive Metabolic Panel 07/13/18 Range/Units 05:53 Sodium 141 (136-145) meq/L Potassium 3.5 (3.5-5.1) meq/L Chloride 114 H (98-107) meq/L Carbon Dioxide 19.6 L (21.0-32.0) meq/L BUN 10 (7-18) mg/dL Creatinine 0.70 (0.50-1.00) mg/dL Calcium 8.7 (8.5-10.1) mg/dL Intake and Output 07/12/18 07/13/18 07/13/18 22:59 06:59 14:59 Intake Total 1999 1000 / 1000 Balance 1999 1000 / 1000 Intake: IV 1999 1000 / 1000 NS Inj 1,000 ML @ 100 mls/hr IV 1000 / 999 1000 / 1000 .CONT .Q10H [facility] Rx#:[id number] Oral 0 / 0 Other: # Voids 5 Date of Last Bowel Movement 07/11/18 07/11/18 Assessment and Plan - Assessment (1) TIA (transient ischemic attack) Code(s): G45.9 - Transient cerebral ischemic attack, unspecified Status: Acute (2) Chest pain Code(s): R07.9 - Chest pain, unspecified Status: Acute (3) Palpitations Code(s): R00.2 - Palpitations Status: Acute (4) Carotid ulcer Code(s): I65.29 - Occlusion and stenosis of unspecified carotid artery Status : Acute - Plan Continue to monitor on telemetry. Schedule 2D echo to assess left ventricular function. Adenosine stress test tomorrow to check for myocardial ischemic changes. Npo after midnight except for meds. Neurology evaluation in progress. The patient was seen and evaluated by Dr. Lindquist who participated in care, management and decision-making. <Ben Lindquist - Last Filed: 07/13/18 15:18> History of Present Illness Primary Care Provider: UNKNOWN [facility] - Medical History Medical History: Medical History (Last Reviewed 07/13/18 @ 10:06 by Bimal East) Chronic neck and back pain Diabetes Hx of hysterectomy Hypertension Migraine TIA (transient ischemic attack) - Surgical History Surgical History: Surgical History (Last Reviewed 07/13/18 @ 10:06 by Bimal East) Hx of laminectomy - Family History Family History: Family History (Last Updated 07/12/18 @ 13:10 by Monica Grant MD) Father CVA (cerebral vascular accident) Mother CVA (cerebral vascular accident) Medications and Allergies Active Medications: Active Medications Acetaminophen (Tylenol) 650 mg PO Q4H PRN PRN Reason: Temp > 100.4 Clonidine HCl (Catapres) 0.1 mg PO Q6H PRN PRN Reason: SBP> OR = 180, DBP> OR = 100 Last Admin: 07/13/18 08:38 Dose: 0.1 mg Clopidogrel Bisulfate (Plavix) 75 mg PO DAILY [facility] Last Admin: 07/13/18 08:37 Dose: 75 mg Dextrose (D50w Vial) 50 ml IV.PUSH UNSCH PRN PRN Reason: PER HYPOGLYCEMIA PROTOCOL Enalaprilat (Vasotec Inj) 1.25 mg IV.PUSH Q4H PRN PRN Reason: For SBP > 220 or DBP > 120 Enoxaparin Sodium (Lovenox Inj) 40 mg SQ Q24H [facility] Last Admin: 07/13/18 15:16 Dose: 40 mg Fenofibrate (Tricor) 48 mg PO DAILY [facility] Last Admin: 07/13/18 08:37 Dose: 48 mg Fentanyl (Duragesic 50 Mcg Patch.72hr) 1 patch T-DERMAL Q3D [facility] Last Admin: 07/12/18 19:17 Dose: 1 patch Glucagon (Glucagon Inj) 1 mg OTHER UNSCH PRN PRN Reason: for Hypoglycemia Protocol Sodium Chloride (Ns Inj) 1,000 mls @ 100 mls/hr IV.CONT .Q10H [facility] Last Admin: 07/13/18 11:31 Dose: 100 mls/hr Insulin Aspart (Novolog Insulin Correctional Sugar Inj) 0 unit SQ ACHS [facility]; Protocol Last Admin: 07/13/18 12:35 Dose: Not Given Ondansetron HCl (Zofran Inj) 4 mg IV.PUSH Q6H PRN PRN Reason: NAUSEA OR VOMITING Ondansetron HCl (Zofran Odt) 4 mg PO Q12H PRN PRN Reason: NAUSEA OR VOMITING Oxycodone/Acetaminophen (Percocet 10/325 Mg) 1 tab PO Q6H PRN PRN Reason: PAIN SCALE 1 TO 10 Last Admin: 07/13/18 11:25 Dose: 1 tab Patch Removal (Remove Old Patch) 1 each T-DERMAL Q3D [facility] Last Admin: 07/12/18 19:19 Dose: 1 each Pravastatin Sodium (Pravachol) 40 mg PO HS [facility] Last Admin: 07/12/18 21:29 Dose: 40 mg Sodium Chloride (Ns Flush) 2 ml IV.FLUSH BID [facility] Last Admin: 07/13/18 08:37 Dose: Not Given Sodium Chloride (Ns Flush) 2 ml IV.FLUSH PRN PRN PRN Reason: FLUSH AFTER USING IV ACCESS Temazepam (Restoril) 15 mg PO HS PRN PRN Reason: INSOMNIA Last Admin: 07/12/18 21:29 Dose: 15 mg Topiramate (Topamax) 200 mg PO HS [facility] Last Admin: 07/12/18 21:29 Dose: 200 mg Verapamil HCl (Isoptin) 120 mg PO HS [facility] Last Admin: 07/12/18 21:30 Dose: 120 mg Exam Vital signs: Vital Signs 07/12/18 15:30 18 19:19 07/12/18 19:27 Temperature 98.2 F Pulse Rate 80 82 Respiratory Rate 15 16 18 Blood Pressure 140/80 170/94 H Pulse Oximetry 98 100 07/12/18 20:00 07/12/18 22:31 07/12/18 23:29 Temperature 98.6 F Pulse Rate 96 H 102 H Respiratory Rate 18 Blood Pressure 175/105 H Pulse Oximetry 100 100 07/13/18 00:00 07/13/18 03:45 07/13/18 04:06 Temperature 98.7 F Pulse Rate 108 H 94 H 100 H Respiratory Rate 18 Blood Pressure 177/100 H Pulse Oximetry 100 07/13/18 08:00 07/13/18 08:09 07/13/18 11:55 Temperature 98.2 F 98.4 F Pulse Rate 74 78 78 Respiratory Rate 18 18 Blood Pressure 180/100 H 154/88 H Pulse Oximetry 96 98 07/13/18 12:35 Temperature Pulse Rate Respiratory Rate 16 Blood Pressure Pulse Oximetry Intake & Output 07/12/18 07/13/18 07/13/18 18:59 06:59 18:59 Intake Total 1000 / 1000 1000 / 1000 1000 / 1000 Balance 1000 / 1000 1000 / 1000 1000 / 1000 Intake: IV 1000 / 1000 1000 / 1000 1000 / 1000 NS Inj 1,000 ML @ 100 mls/hr IV 1000 / 1000 1000 / 1000 .CONT .Q10H [facility] Rx#:[id number] Oral 0 / 0 Other: # Voids 5 Date of Last Bowel Movement 07/11/18 07/11/18 Results 07/13/18 05:53 07/13/18 05:53 Lipids 07/12/18 07/13/18 Range/Units 20:50 05:53 Triglycerides 197 H 207 H (42-150) mg/dL Cholesterol 205 H 204 H (120-200) mg/dL HDL Cholesterol 37.1 L 33.7 L (40.0-60.0) mg/dL Cholesterol/HDL Ratio 5.52 6.05 Ratio CBC 07/13/18 Range/Units 05:53 WBC 8.2 (4.0-11.0) th/mm3 RBC 4.37 (4.00-5.30) mil/mm3 Hgb 13.9 (11.6-15.3) gm/dL Hct 40.4 (35.0-46.0) % Plt Count 256 (150-450) th/mm3 Neut # (Auto) 4.2 (1.8-7.7) th/mm3 Lymph # (Auto) 3.3 (1.0-4.8) th/mm3 [place] # (Auto) 0.5 (0.0-0.9) th/mm3 Eos # (Auto) 0.1 (0.0-0.4) th/mm3 Baso # (Auto) 0.1 (0.0-0.2) th/mm3 Comprehensive Metabolic Panel 07/13/18 Range/Units 05:53 Sodium 141 (136-145) meq/L Potassium 3.5 (3.5-5.1) meq/L Chloride 114 H (98-107) meq/L Carbon Dioxide 19.6 L (21.0-32.0) meq/L BUN 10 (7-18) mg/dL Creatinine 0.70 (0.50-1.00) mg/dL Calcium 8.7 (8.5-10.1) mg/dL Intake and Output 07/13/18 07/13/18 07/13/18 06:59 14:59 22:59 Intake Total 1000 / 1000 Balance 1000 / 1000 Intake: IV 1000 / 1000 NS Inj 1,000 ML @ 100 mls/hr IV 1000 / 1000 .CONT .Q10H [facility] Rx#:[id number] Other: # Voids 5 Date of Last Bowel Movement 07/11/18 Assessment and Plan - Assessment (1) TIA (transient ischemic attack) Code(s): G45.9 - Transient cerebral ischemic attack, unspecified Status: Acute (2) Chest pain Code(s): R07.9 - Chest pain, unspecified Status: Acute (3) Palpitations Code(s): R00.2 - Palpitations Status: Acute (4) Carotid ulcer Code(s): I65.29 - Occlusion and stenosis of unspecified carotid artery Status : Acute - Attending Attestation Patient seen and examined. I reviewed and agree with the evaluation and plan as presented. Monitor on telemetry. Check echo. Stress test tomorrow. Neurology eval in progress.
[2018-07-13] MEDS: Enoxaparin Inj 40 MG/0.4 ML Syringe SQ SCH (15:16)
--- NOTE | 2018-07-13 15:16 | P.PN ---
Subjective Interval history: Patient is seen lying in bed. Her mother and brother are also present. She is complaining of a headache. Reports that it has improved slightly with clonidine. She is requesting additional pain medications and tells me that frequently when she has a migraine she has to be put in a "twilight sleep". She did get Imitrex last night however she said that just made her jumpy. Discussed with her that she is on extensive pain medications at this time including a fentanyl patch and Percocet and that I do not feel that additional narcotics are safe. She reluctantly agrees. Also acknowledges that she has not had any caffeine and that may be what is contributing to her headache - agrees to try a cup of coffee to see if it improves. Denies any chest pain or shortness of breath. Denies any nausea vomiting or diarrhea. Reports that left arm numbness present at admission has resolved. Reports that all of her "TIA symptoms" have resolved. Physical Exam Vital signs: Vital Signs 07/12/18 15:30 07/12/18 19:19 07/12/18 19:27 Temperature 98.2 F Pulse Rate 80 82 Respiratory Rate 15 16 18 Blood Pressure 140/80 170/94 H Pulse Oximetry 98 100 07/12/18 20:00 07/12/18 22:31 07/12/18 23:29 Temperature 98.6 F Pulse Rate 96 H 102 H Respiratory Rate 18 Blood Pressure 175/105 H Pulse Oximetry 100 100 07/13/18 00:00 07/13/18 03:45 07/13/18 04:06 Temperature 98.7 F Pulse Rate 108 H 94 H 100 H Respiratory Rate 18 Blood Pressure 177/100 H Pulse Oximetry 100 07/13/18 08:00 07/13/18 08:09 07/13/18 11:55 Temperature 98.2 F 98.4 F Pulse Rate 74 78 78 Respiratory Rate 18 18 Blood Pressure 180/100 H 154/88 H Pulse Oximetry 96 98 07/13/18 12:35 Temperature Pulse Rate Respiratory Rate 16 Blood Pressure Pulse Oximetry Intake & Output 07/12/18 07/13/18 07/13/18 18:59 06:59 18:59 Intake Total 1000 / 1000 1000 / 1000 1000 / 1000 Balance 1000 / 1000 1000 / 1000 1000 / 1000 Intake: IV 1000 / 1000 1000 / 1000 1000 / 1000 NS Inj 1,000 ML @ 100 mls/hr IV 1000 / 1000 1000 / 1000 .CONT .Q10H [facility] Rx#:[id number] Oral 0 / 0 Other: # Voids 5 Date of Last Bowel Movement 07/11/18 07/11/18 Narrative: GENERAL: Well-nourished, well-developed adult female in no obvious distress. SKIN: Warm and dry. HEAD: Atraumatic. Normocephalic. CARDIOVASCULAR: Regular rate and rhythm. RESPIRATORY: No accessory muscle use. Clear to auscultation. Breath sounds equal bilaterally. GASTROINTESTINAL: Abdomen soft, non-tender, non-distended. Positive bowel sounds. MUSCULOSKELETAL: Extremities without clubbing, cyanosis, or edema. No obvious deformities. NEUROLOGICAL: Awake and alert. No obvious cranial nerve deficits. Motor grossly within normal limits. Normal speech. Results - Labs CBC & Chem 7: 07/13/18 05:53 07/13/18 05:53 Laboratory Results - last 24 hr 07/12/18 07/12/18 07/12/18 18:45 20:00 20:50 WBC RBC Hgb Hct MCV MCH MCHC RDW Plt Count MPV Neut % (Auto) Lymph % (Auto) [place] % (Auto) Eos % (Auto) Baso % (Auto) Neut # (Auto) Lymph # (Auto) [place] # (Auto) Eos # (Auto) Baso # (Auto) WBC Differential Differential Comment ESR Sodium Potassium Chloride Carbon Dioxide Anion Gap BUN Creatinine Estimated GFR POC Glucose 86 Random Glucose Calcium Triglycerides 197 H Cholesterol 205 H LDL Cholesterol, Calc 129 H HDL Cholesterol 37.1 L Cholesterol/HDL Ratio 5.52 Vitamin B12 280 TSH 0.347 L RPR Nonreactive 07/12/18 07/12/18 07/13/18 20:50 21:33 05:53 WBC 8.2 RBC 4.37 Hgb 13.9 Hct 40.4 MCV 92.4 MCH 31.8 MCHC 34.4 RDW 12.5 Plt Count 256 MPV 8.0 Neut % (Auto) 51.1 Lymph % (Auto) 40.2 [place] % (Auto) 6.4 Eos % (Auto) 1.6 Baso % (Auto) 0.7 Neut # (Auto) 4.2 Lymph # (Auto) 3.3 [place] # (Auto) 0.5 Eos # (Auto) 0.1 Baso # (Auto) 0.1 WBC Differential . Differential Comment Auto diff final ESR 15 Sodium Potassium Chloride Carbon Dioxide Anion Gap BUN Creatinine Estimated GFR POC Glucose 118 H Random Glucose Calcium Triglycerides Cholesterol LDL Cholesterol, Calc HDL Cholesterol Cholesterol/HDL Ratio Vitamin B12 TSH RPR 07/13/18 07/13/18 05:53 12:29 WBC RBC Hgb Hct MCV MCH MCHC RDW Plt Count MPV Neut % (Auto) Lymph % (Auto) [place] % (Auto) Eos % (Auto) Baso % (Auto) Neut # (Auto) Lymph # (Auto) [place] # (Auto) Eos # (Auto) Baso # (Auto) WBC Differential Differential Comment ESR Sodium 141 Potassium 3.5 Chloride 114 H Carbon Dioxide 19.6 L Anion Gap 7 BUN 10 Creatinine 0.70 Estimated GFR Greater than 89 POC Glucose 104 Random Glucose 81 Calcium 8.7 Triglycerides 207 H Cholesterol 204 H LDL Cholesterol, Calc 129 H HDL Cholesterol 33.7 L Cholesterol/HDL Ratio 6.05 Vitamin B12 TSH RPR - Imaging Impressions Head MRI 07/12/18 12:36 CONCLUSION: Examination quality is mildly degraded by motion artifact. Otherwise, no acute intracranial abnormality is identified. There are no findings to indicate recent ischemia. Head MRA 07/12/18 12:36 CONCLUSION: 1. Negative MRA [place] ([place]) non contrast. Assessment and Plan - Plan 48-year-old white female with a history of TIA, migraine headaches, DM, hypertension and chronic pain presented to the emergency room with recurrent symptoms of left upper extremity numbness, heart palpitations, and anxiety. TIA vs complex migraine vs ? -rule out underlying seizures; neurology consultation. Neurology has cleared for discharge depending on vascular surgery decision. -Cardiology consult placed by neurology; cardiology has planned stress test for 07/14. Right carotid bulb ulceration medical management, Plavix, obtain fasting blood profile and initiate statin; -appreciate vascular surgery consult and follow-up with Dr. Velasco Diabetes mellitus type 2 continue with sliding scale insulin and monitor blood sugars Hypertension -Patient reports history of hypertension however is unclear what if anything she has been taking to control it. Review of records indicates that she was previously on atenolol 50 mg however is not on her current list of home meds. -We will add clonidine as needed; defer decision on long-term hypertension control to her medical records custodian. Migraine headaches -verapamil and Topamax prescribed by her neurologist; Continue home medications. Chronic pain -Continue home fentanyl and Percocet; avoid oversedation DVT prophylaxisLovenox. Tobacco abuse. Cessation counseling provided
[2018-07-13 15:51] LABS: Anti-Nuclear Antibody Screen Neg (Neg)
[2018-07-13] MEDS: Topiramate 200 MG Tablet PO SCH (21:06)
[2018-07-13] MEDS: Verapamil 120 MG Tablet PO SCH (21:06)
[2018-07-13] MEDS ORDERED: ALPRAZolam 0.5 MG Tablet PO ONE (21:47)
[2018-07-14] MEDS: Sod Chloride 0.9% Inj 1,000 ML IV.CONT SCH (07:26)
[2018-07-14] MEDS ORDERED: ALPRAZolam 0.5 MG Tablet PO ONE (08:46)
[2018-07-14] MEDS: Insulin NovoLOG Aspart Correctional Sugar Inj SQ SCH (09:01)
[2018-07-14] MEDS: Fenofibrate 48 MG Tablet PO SCH (09:02)
--- NOTE | 2018-07-14 10:00 | P.PN ---
Subjective Interval history: Patient is seen sitting up in bed getting ready for stress test. She does endorse some anxiety this morning about the test. She is also requesting anxiety medication for when she goes home until she can see her mental health provider. Physical Exam Vital signs: Vital Signs 07/13/18 11:55 07/13/18 12:35 07/13/18 16:07 Temperature 98.4 F 98.6 F Pulse Rate 78 68 Respiratory Rate 18 16 20 Blood Pressure 154/88 H 168/82 H Pulse Oximetry 98 07/13/18 19:22 07/13/18 20:00 07/13/18 23:40 Temperature 98.7 F 98.2 F Pulse Rate 86 88 73 Respiratory Rate 18 16 Blood Pressure 149/93 H 165/90 H Pulse Oximetry 99 100 07/14/18 03:49 07/14/18 05:10 07/14/18 08:31 Temperature 98.2 F 98.2 F Pulse Rate 77 64 65 Respiratory Rate 16 18 Blood Pressure 108/75 111/63 Pulse Oximetry 99 98 Intake & Output 07/13/18 07/14/18 07/14/18 18:59 06:59 18:59 Intake Total 1000 / 1000 900 / 900 500 / 500 Balance 1000 / 1000 900 / 900 500 / 500 Intake: IV 1000 / 1000 500 / 500 500 / 500 NS Inj 1,000 ML @ 100 mls/hr IV 1000 / 1000 500 / 500 500 / 500 .CONT .Q10H ANTONIETA Rx#:[id number] Oral 400 / 400 Other: # Voids 1 Date of Last Bowel Movement 07/11/18 Narrative: GENERAL: Well-nourished, well-developed adult female in no obvious distress. SKIN: Warm and dry. HEAD: Atraumatic. Normocephalic. CARDIOVASCULAR: Regular rate and rhythm. RESPIRATORY: No accessory muscle use. Clear to auscultation. Breath sounds equal bilaterally. GASTROINTESTINAL: Abdomen soft, non-tender, non-distended. Positive bowel sounds. MUSCULOSKELETAL: Extremities without clubbing, cyanosis, or edema. No obvious deformities. NEUROLOGICAL: Awake and alert. No obvious cranial nerve deficits. Motor grossly within normal limits. Normal speech. Results - Labs CBC & Chem 7: 07/13/18 05:53 07/13/18 05:53 Laboratory Results - last 24 hr 07/12/18 07/13/18 07/13/18 20:00 05:53 12:29 POC Glucose 104 Hemoglobin A1c 5.0 GREGORY Screen Neg RPR Nonreactive 07/13/18 07/14/18 17:37 08:22 POC Glucose 129 H 84 Hemoglobin A1c GREGORY Screen RPR Assessment and Plan - Plan 48-year-old white female with a history of TIA, migraine headaches, DM, hypertension and chronic pain presented to the emergency room with recurrent symptoms of left upper extremity numbness, heart palpitations, and anxiety. TIA vs complex migraine vs ? -rule out underlying seizures; neurology consultation. Neurology has cleared for discharge depending on vascular surgery decision. -Cardiology consult placed by neurology; cardiology has planned stress test for 07/14. Will discharge if stress test is normal Right carotid bulb ulceration medical management, Plavix, obtain fasting blood profile and initiate statin; -appreciate vascular surgery consult and follow-up with Dr. Velasco; recommend follow-up 1 week outpatient Diabetes mellitus type 2 continue with sliding scale insulin and monitor blood sugars Hypertension -Patient reports history of hypertension however is unclear what if anything she has been taking to control it. Review of records indicates that she was previously on atenolol 50 mg however is not on her current list of home meds. 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 Migraine headaches -verapamil and Topamax prescribed by her neurologist; Continue home medications. Chronic pain -Continue home fentanyl and Percocet; avoid oversedation DVT prophylaxisLovenox. Tobacco abuse. Cessation counseling provided
[2018-07-14] MEDS ORDERED: Regadenoson Inj 0.4 MG/5 ML Syringe IV.PUSH ONE (10:31)
[2018-07-14] MEDS ORDERED: CAFFEINE CITRATED 60 MG/3 ML ONE (10:57)
--- NOTE | 2018-07-14 12:03 | NM ---
EXAM DATE: 07/14/2018 11:57 AM EDT AGE/SEX: 48 years / Female INDICATIONS:Angina. . Chest pain with ST changes. CLINICAL DATA: This is the patient's initial encounter. Patient reports that signs and symptoms have been present for 1 day and indicates a pain score of 0/10. MEDICAL/SURGICAL HISTORY: Diabetes. Hypertension. Transient ischemic attack. 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 Hysterectomy. COMPARISON: No prior exams available for comparison. DOSE: 8.4 mCi Tc 99m Myoview at rest 27.3 mCi [id number] at stress 0.4 mg Lexiscan STRESS SYMPTOMS: Dyspnea and chest pain. EJECTION FRACTION: >70 % TECHNIQUE: The patient underwent pharmacologic stress with infusion of prescribed dose. Continuous ECG tracing was monitored during stress. Gated SPECT imaging was performed after stress and conventi onal SPECT imaging was performed at rest. The examination was performed on a SPECT/CT scanner, both attenuation and non-corrected datasets were reviewed. FINDINGS: Distribution: The maximum perfused segment at stress is in the lateral wall. Perfusion Study: The pattern of perfusion at stress is within normal limits. Gated Study: There are intact wall motion and wall thickening without hypokinetic or dyskinetic segm ents. The ejection fraction is calculated at >70%. RISK CATEGORY: 1- Low Risk. CONCLUSION: No reversible perfusion defects. No focal wall motion abnormalities. Electronically signed by: Kel Durham MD 07/14/2018 12:02 PM EDT
--- NOTE | 2018-07-14 13:02 | P.DS ---
Date of admission: 07/12/18 12:34 Primary care physician: UNKNOWN Attending physician on discharge: Jeison Rodriguez Anticipated date of discharge: 07/14/18 Brief History from admission: 48-year-old white female with a history of diabetes mellitus, hypertension, TIAs , migraine headaches presents to the emergency room due to acute symptoms of left upper arm numbness tingling, speech difficulties, heart palpitations and anxiety which lasted for a few minutes. Due to the fact that this was a repeat episode with similar symptoms happening 6 days ago, she came to the emergency room for further evaluation. She states that her neurologist Dr. Redman in [place] states that she has a history of previous TIAs and felt her most recent episode may be due to nocturnal seizures versus complex migraine and was sending her for outpatient CAT a for further workup prior to this particular episode that happened earlier this morning. Currently, she feels better has no recurrent symptoms of palpitations nor any weakness or numbness. She has no active headaches or visual changes at this time. She states that she does have chronic pain of her neck and back and is on fentanyl 50 MCG's on every 72 hours along with Percocet which he takes every 4 hours. DS: Diagnosis - Discharge Diagnosis (1) Carotid ulcer Status: Acute (2) TIA (transient ischemic attack) Status: Resolved (3) Chest pain Status: Resolved (4) Palpitations Status: Resolved DS: Medications - Discharge Medications Prescriptions: clopidogrel [Plavix] 75 mg PO DAILY #30 tab hydroxyzine HCl 25 mg PO Q8H PRN #30 tab PRN Reason: Anxiety pravastatin 40 mg PO HS #30 tab DS: Summary Hospital Course: 48-year-old white female with a history of TIA, migraine headaches, DM, hypertension and chronic pain presented to the emergency room with recurrent symptoms of left upper extremity numbness, heart palpitations, and anxiety. Suspected TIA vs complex migraine. Neurology consulted and could find no obvious neurological cause. Carotid ultrasound indicated Right carotid bulb ulceration -started Plavix and statin. Vascular surgery consulted recommends one-week follow-up as outpatient. Patient did experience a lot of anxiety while in hospital -Rx for Atarax given until she can follow-up with her mental health provider. Hypertension does not appear to be currently controlled with home medication, patient previously on atenolol. 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 - Time Spent with Patient Total time spent providing and/or coordinating discharge services: Less than 30 minutes - Quality: VTE Deep Vein Thrombosis/Pulmonary Embolism Present on Admission: No Exam Vital signs: Vital Signs 07/13/18 16:07 07/13/18 19:22 07/13/18 20:00 Temperature 98.6 F 98.7 F Pulse Rate 68 86 88 Respiratory Rate 20 18 Blood Pressure 168/82 H 149/93 H Pulse Oximetry 99 07/13/18 23:40 07/14/18 03:49 07/14/18 05:10 Temperature 98.2 F 98.2 F Pulse Rate 73 77 64 Respiratory Rate 16 16 Blood Pressure 165/90 H 108/75 Pulse Oximetry 100 99 07/14/18 08:31 07/14/18 12:42 Temperature 98.2 F 97.9 F Pulse Rate 65 72 Respiratory Rate 18 20 Blood Pressure 111/63 128/68 Pulse Oximetry 98 96 Intake & Output 07/13/18 07/14/18 07/14/18 18:59 06:59 18:59 Intake Total 1000 / 1000 900 / 900 500 / 500 Balance 1000 / 1000 900 / 900 500 / 500 Intake: IV 1000 / 1000 500 / 500 500 / 500 NS Inj 1,000 ML @ 100 mls/hr IV 1000 / 1000 500 / 500 500 / 500 .CONT .Q10H ANTONIETA Rx#:[id number] Oral 400 / 400 Other: # Voids 1 Date of Last Bowel Movement 07/11/18 Narrative: GENERAL: Well-nourished, well-developed adult female in no obvious distress. SKIN: Warm and dry. HEAD: Atraumatic. Normocephalic. CARDIOVASCULAR: Regular rate and rhythm. RESPIRATORY: No accessory muscle use. Clear to auscultation. Breath sounds equal bilaterally. GASTROINTESTINAL: Abdomen soft, non-tender, non-distended. Positive bowel sounds. MUSCULOSKELETAL: Extremities without clubbing, cyanosis, or edema. No obvious deformities. NEUROLOGICAL: Awake and alert. No obvious cranial nerve deficits. Motor grossly within normal limits. Normal speech. Results Procedures completed during hospitalization: Stress test-negative Labs on day of discharge: Labs from last 24 hours 07/14/18 07/13/18 07/13/18 08:22 17:37 05:53 POC Glucose 84 129 H Hemoglobin A1c 5.0 GREGORY Screen RPR 08/16/18 20:00 POC Glucose Hemoglobin A1c GREGORY Screen Neg RPR Nonreactive - Impressions ITS Impressions Chest X-Ray 07/12/18 01:19 CONCLUSION: No acute cardiopulmonary process. Head CT 07/12/18 01:19 CONCLUSION: Negative noncontrast head CT. . Head CTA 07/12/18 01:19 CONCLUSION: Negative CTA. Neck CTA 07/12/18 02:55 CONCLUSION: 1. Right carotid bulb ulcer. 2. Calcified plaque at the left carotid bulb without significant stenosis. Head MRI 07/12/18 12:36 CONCLUSION: Examination quality is mildly degraded by motion artifact. Otherwise, no acute intracranial abnormality is identified. There are no findings to indicate recent ischemia. Head MRA 07/12/18 12:36 CONCLUSION: 1. Negative MRA [place] ([place]) non contrast. Myocardial Perfusion Scan Nuc Med 07/14/18 00:00 CONCLUSION: No reversible perfusion defects. No focal wall motion abnormalities. Discharge Plan - Discharge Disposition Patient Disposition: 01 Discharge Home - Discharge Condition Condition: Stable - Discharge Order Discharge Orders: Discharge Order (Routine); Ordered 07/14/18 Ordered By: Jazmín Antonio Vascular Surgery Clear for Discharge (Routine); Ordered 07/13/18 Ordered By: Alejandro Velasco - Discharge Details Discharge Comment: Will discharge on 07/14 if stress test normal - Physicians Team Primary Care Provider: UNKNOWN, Attending Provider: Jeison Rodriguez Other Providers: Alejandro Velasco MD ; Lenard Brown MD ; Katharina Gamez MD ; Ben Lindquist MD
[2018-07-14] MEDS: Enoxaparin Inj 40 MG/0.4 ML Syringe SQ SCH (13:23)
--- NOTE | 2018-07-14 16:08 | ECG ---
Date Performed: 07/12/2018 Time Performed: 01:22:22 PTAGE: 48 years EKG: Sinus rhythm Since previous tracing, no significant change noted NORMAL ECG PREVIOUS TRACING : 07/12/2018 03.33.34 DOCTOR: Julius Carrasquillo Interpretating Date/Time 07/14/2018 16:07:25
[2018-07-14 23:53] LABS: Homocysteine (Cardiovascular) 7.9 umol/L (<10.4)
[2018-07-17 03:52] LABS: Activated Protein C Resistance 4.6 ratio (> OR = 2.1)
--- NOTE | 2018-07-18 13:24 | P.CONREH ---
History of Present Illness Primary Care Provider: UNKNOWN Chief Complaint: confusion and L UE tingling PMFSH - History History Provided By: Patient - Medical History Medical History: Medical History (Last Reviewed 07/13/18 @ 10:06 by Bimal East) Chronic neck and back pain Diabetes Hx of hysterectomy Hypertension Migraine TIA (transient ischemic attack) - Surgical History Surgical History: Surgical History (Last Reviewed 07/13/18 @ 10:06 by Bimal East) Hx of laminectomy - Family History Family History: Family History (Last Updated 07/12/18 @ 13:10 by Monica Grant MD) Father CVA (cerebral vascular accident) Mother CVA (cerebral vascular accident) - Tobacco History Second Hand Smoke Exposure: Yes Tobacco Use In Past 30 Days: Yes Smoking Status: Current every day smoker Tobacco Type: Cigarettes - Alcohol History How Often Do You Have a Drink Containing Alcohol: Monthly or less - Substance Use History Substance History: No History of Abuse - Travel History Recent Travel in the [place] Within the Last 8 Weeks: No Recent Travel Out of the Country Within the Last 8 Weeks: No - Immunization History Tetanus Immunization: Unsure Hx Influenza Vaccine This Season: No Medications and Allergies Allergies Allergy/AdvReac Type Severity Reaction Status Date / Time aspirin Allergy Severe Anaphylaxis Verified 07/12/18 15:00 codeine Allergy Severe Anaphylaxis Verified 07/12/18 15:00 ibuprofen Allergy Severe Anaphylaxis Verified 07/12/18 15:00 Home Medications Medication Instructions Recorded Confirmed Type fenofibrate nanocrystallized 48 mg PO DAILY 07/12/18 07/12/18 History fentanyl 1 patch TRANSDERMAL Q72H 07/12/18 07/12/18 History ondansetron 4 mg PO BID PRN 07/12/18 07/12/18 History oxycodone-acetaminophen [Percocet] 1 tab PO Q6H PRN 07/12/18 07/12/18 History sumatriptan succinate 50 mg PO Q2-4H PRN 07/12/18 07/12/18 History topiramate 200 mg PO HS 07/12/18 07/12/18 History verapamil 120 mg PO HS 07/12/18 07/12/18 History Exam - Physical Examination Date of Last Bowel Movement: 07/11/18 Results - Labs CBC & Chem 7: 07/13/18 05:53 07/13/18 05:53 Labs: Laboratory Results - last 24 hr 07/12/18 20:50 MTHFR Mutation Detect Prothrombin [id number] Mut Assessment and Plan - Plan Consult received per stroke order set. EMR reviewed. MRI negative for acute stroke. Neurology consult reviewed. Consult deferred due to no acute stroke. Please reconsult as appropriate. Thank you.
[2018-07-19 07:51] LABS: Dil Russell Viper Venom Conf ( ND (NEGATIVE); Dil Russell Viper Venom Time M ND (CORRECTED); Lupus Anticoagulant PTT Screen 49 seconds (< OR = 40)
[2018-07-20 16:29] LABS: Factor V Leiden Mutation Negative (Negative); Protein C Antigen 84 % (70-150)
== END 2018-07-14 15:45 | disposition home or self-care (01) ==
LOC: NEPC 01:00 → NEDA 05:04 → INTOOBSV 05:22 → NEDH 10:37 → NEPGCP 16:58
PROVIDERS: ADMIT Hospitalist; ATTEND Hospitalist